=== PATIENT | male | born 1960 ===

== ENCOUNTER 2017-01-08 23:41 | Inpatient (IN) | payer MEDICAID ==
[2017-01-09] MEDS ORDERED: Piperacillin/Tazobact 3.375 GM in Sodium Chloride 0.9% 100 ML IV STA (00:17)
[2017-01-09] MEDS ORDERED: Piperacillin/Tazobact 3.375 gm Inj IVPB ONE (00:33)
[2017-01-09] MEDS ORDERED: Vancomycin 1 g Inj ONE (00:33)
[2017-01-09 00:48] LABS: BASO # 0.1 K/uL (0.0-0.2); BASO % 1.1 % (0.0-2.0); EOS # 0.3 K/uL (0.0-0.7); HEMATOCRIT 43.8 % (35.0-51.0); LYMPH # 2.6 K/uL (1.0-4.3); LYMPH % 23.4 % (20.0-40.0); MEAN CELL VOLUME 91.8 fl (80.0-94.0); MEAN CORPUSCULAR HEMOGLOBIN 30.4 pg (27.0-31.0); MEAN CORPUSCULAR HGB CONC 33.1 g/dL (33.0-37.0); MEAN PLATELET VOLUME 9.5 fl (7.2-11.7); MONO # 0.8 K/uL (0.0-0.8); MONO % 7.4 % (0.0-10.0); NEUT # 7.1 K/uL (1.8-7.0); NEUT % 65.1 % (50.0-75.0); NRBC % 0.2 % (0.0-0.0)
[2017-01-09 00:50] LABS: RBC URINE 1 /hpf (0-3); URINE BILIRUBIN NEGATIVE (NEGATIVE); URINE COLOR YELLOW (YELLOW); URINE GLUCOSE (UA) NEG (Normal); URINE KETONE NEGATIVE (NEGATIVE); URINE LEUKOCYTE ESTERASE NEG Leu/uL (Negative); URINE PROTEIN NEGATIVE (NEGATIVE); URINE UROBILINOGEN 0.2-1.0 mg/dL (0.2-1.0); WBC URINE < 1 /hpf (0-5)
[2017-01-09 00:52] LABS: URINE BLOOD NEGATIVE (NEGATIVE)
[2017-01-09 00:57] LABS: ALB/GLOB RATIO 1.5 (1.0-2.1); ALKALINE PHOSPHATASE 74 U/L (38-126); ALT/SGPT 47 U/L (21-72); AST/SGOT 36 U/L (17-59); BILIRUBIN,TOTAL 0.4 mg/dl (0.2-1.3); BLOOD UREA NITROGEN 31 mg/dl (9-20); CALCIUM 9.3 mg/dL (8.4-10.2); CARBON DIOXIDE 22 mmol/L (22-30); CHLORIDE 100 mmol/L (98-107); GFR AFRICAN-AMERICAN > 60; GLUCOSE,RANDOM 105 mg/dL (75-110); SODIUM 135 mmol/l (132-148); TOTAL PROTEIN 7.9 G/DL (6.3-8.2)
--- NOTE | 2017-01-09 00:57 | ED PDOC ---
Lower Extremity Pain/Injury Time Seen by Provider: 01/09/17 00:02 Chief Complaint (Nursing): Lower Extremity Problem/Injury Chief Complaint (Provider): Ulcer History Per: Patient History/Exam Limitations: no limitations Onset/Duration Of Symptoms: Days (180) Current Symptoms Are (Timing): Still Present Severity: Severe Additional History Per: Patient Additional Complaint(s): 56 y/o male with no PMHx here for evaluation of LLE ulceration x6 months. This is the 3rd ED visit for the same complaint in the last four days. Patient is taking Augmentin and applying Bacitracin and to the wound and complains of marked increase in pain, worsening of the wound, and new inability to bear weight. He denies any fever, chills, nausea, vomiting, diarrhea, chest pain, shortness of breath, or other complaint. - Risk Factors DVT Risk Factors: Pos: None Past Medical History Reviewed: Historical Data, Nursing Documentation, Vital Signs Vital Signs: Last Vital Signs Temp 98.5 F 01/08/17 23:54 Pulse 94 H 01/08/17 23:54 Resp 16 01/08/17 23:54 BP 115/78 01/08/17 23:54 Pulse Ox 100 01/08/17 23:54 - Medical History PMH: No Chronic Diseases - Surgical History Surgical History: No Surg Hx - Family History Family History: States: Unknown Family Hx - Social History Current smoker - smoking cessation education provided: No Ex-Smoker (has not smoked in the last 12 months): No Alcohol: None Drugs: Denies - Immunization History Hx Tetanus Toxoid Vaccination: No Hx Influenza Vaccination: No Hx Pneumococcal Vaccination: No - Home Medications Home Medications: Ambulatory Orders Medication Instructions Recorded Cephalexin [cephalexin] 500 mg PO Q6 #28 cap 06/02/16 - Allergies Allergies/Adverse Reactions: Allergies Allergy/AdvReac Type Severity Reaction Status Date / Time No Known Allergies Allergy Verified 06/02/16 12:01 Physical Exam - Reviewed Nursing Documentation Reviewed: Yes Vital Signs Reviewed: Yes - Physical Exam Appears: Positive for: Well, Non-toxic, No Acute Distress Head Exam: Positive for: ATRAUMATIC, NORMAL INSPECTION, NORMOCEPHALIC Skin: Positive for: Warm. Negative for: Normal Color (Left anterior tibial surface: 12 cm endophytic ulceration with brown/yellow discharge and some blood from the wound. Very tender to palpation. There is surrounding induration. ), Diaphoresis Eye Exam: Positive for: EOMI, Normal appearance, PERRL ENT: Positive for: Normal ENT Inspection Neck: Positive for: Normal, Painless ROM Cardiovascular/Chest: Positive for: Regular Rate, Rhythm Respiratory: Positive for: CNT, Normal Breath Sounds Gastrointestinal/Abdominal: Positive for: Normal Exam, Bowel Sounds, Soft Back: Positive for: Normal Inspection Extremity: Positive for: Tenderness, Swelling Neurologic/Psych: Positive for: Alert, Oriented - Laboratory Results Result Diagrams: 01/09/17 00:30 01/09/17 00:30 - ECG O2 Sat by Pulse Oximetry: 100 (RA) Pulse Ox Interpretation: Normal Medical Decision Making Medical Decision Making: Time: 12:59PM Impression: 56 y/o male with longstanding ulcer, worsening clinical status and appearance of the lesion, and multiple ED visits. Plan: - Labs - CXR - Vancomycin and Zosyn - Morphine - XR Left Tibia - US LLE [facility] Preliminary Radiology Report Call: [phone] assistance Online chat: [email or web address] Patient Name: PAULA ZAMORA (Age): 1960 56 Gender: M Date of Exam: 01/09/2017 Referring Physician: Michelet Olivarez # of Images: 35 Ordered As: US DUPLEX LOWER EXTRM VEIN LEFT CANDLE MOLDER MACHINE (QA) DISCREPANCY? If there is a discrepancy between the preliminary and final interpretation, please notify [employer] via [email or web address]. If you do not have access to our QA portal, call our QA team at [phone] CONFIDENTIALITY STATEMENT This report is intended only for the use of the referring physician, and only in accordance with law, If you received this in error, call [phone] Page 1 of 1 EXAM: US Duplex Left Lower Extremity Veins CLINICAL HISTORY: 56 years old, male; Pain; Leg, lower; Left; Additional info: Left leg pain TECHNIQUE: Real-time ultrasound scan of the veins of the left lower extremity with color Doppler flow, spectral waveform analysis and compression. COMPARISON: No relevant prior studies available. FINDINGS: Deep veins: Normal color and spectral Doppler flow. Normal compressibility. No deep vein thrombosis from common femoral to popliteal vein. Superficial veins: No thrombosis. Soft tissues: No popliteal cyst. Lymph nodes: 2.8 x 3.4 x 1.0 cm LEFT inguinal lymph node. IMPRESSION: 1. No evidence of DVT within LEFT lower extremity. 2. Incidental/non-acute findings are described above. Thank you for allowing us to participate in the care of your patient. Dictated and Authenticated by: Esau Laura MD 01/09/2017 1:19 AM Eastern Time ([place] & [place]) 01:20: Spoke with Dr. Benavidez who accepted patient for admission. Scribe Attestation: Documented by Zaida Mcneil acting as a scribe for Michelet Olivarez MD. Scribe Attestation: All medical record entries made by the Scribe were at my direction and personally dictated by me. I have reviewed the chart and agree that the record accurately reflects my personal performance of the history, physical exam, medical decision making, and the department course for this patient. I have also personally directed, reviewed, and agree with the discharge instructions and disposition. Disposition - Clinical Impression Clinical Impression: Cellulitis, Chronic ulcer of left lower extremity, Skin infection - Patient ED Disposition Is Patient to be Admitted: Yes Discussed With : Hector Benavidez Doctor Will See Patient In The: Hospital Counseled Patient/Family Regarding: Studies Performed, Diagnosis - Disposition Disposition Time: 01:20 Condition: STABLE - Pt Status Changed To: Hospital Disposition Of: Inpatient - Admit Certification Admit to Inpatient:: After my assessment, the patient will require hospitalization for at least two midnights. This is because of the severity of symptoms shown, intensity of services needed, and/or the medical risk in this patient being treated as an outpatient.
[2017-01-09 01:16] LABS: PARTIAL THROMBOPLASTIN TIME 27.8 SECONDS (23.3-32.5)
--- NOTE | 2017-01-09 01:37 | CP.PCM.HP ---
History of Present Illness - History of Present Illness History of Present Illness: CC: LLE ulcer HPI: This is a 56 y/o male with no known medical conditions who comes in with LLE ulceration which has not healed over the last 6 months in spite of antibiotics. Over past 4 days symptoms have gotten worse, and he has been to 2 other ERs and received an Rx for augmentin and bacitracin, without improvement. Denies f/c/n/v/d. ROS: 14 systems reviewed, negative other than HPI MHx: None known SHx: None Allergies: NKDA Medications: as per HPI Family Hx: Reviewed, no relevant findings Social Hx: Lives , no significant EtOH, ?tobacco Surrogate Decision Maker: Present on Admission - Present on Admission Any Indicators Present on Admission: No Past Patient History - Past Social History Alcohol: None Drugs: Denies - CARDIAC Hx Peripheral Vascular Disease: Yes (varicose veins) - PULMONARY Hx Respiratory Disorders: No - NEUROLOGICAL Hx Neurological Disorder: No - INTEGUMENTARY Hx Cellulitis: Yes - PSYCHIATRIC Hx Substance Use: No - SURGICAL HISTORY Hx Surgeries: No - ANESTHESIA Hx Anesthesia: No Meds Allergies/Adverse Reactions: Allergies Allergy/AdvReac Type Severity Reaction Status Date / Time No Known Allergies Allergy Verified 06/02/16 12:01 Physical Exam - Constitutional Appears: No Acute Distress - Head Exam Head Exam: ATRAUMATIC, NORMOCEPHALIC - Eye Exam Eye Exam: EOMI, PERRL - ENT Exam ENT Exam: Mucous Membranes Moist - Neck Exam Neck exam: Positive for: Full Rom - Respiratory Exam Respiratory Exam: Clear to Auscultation Bilateral, NORMAL BREATHING PATTERN - Cardiovascular Exam Cardiovascular Exam: REGULAR RHYTHM, +S1, +S2 - GI/Abdominal Exam GI & Abdominal Exam: Normal Bowel Sounds, Soft - Extremities Exam Extremities exam: Positive for: full ROM Additional comments: LLE ulcer with ?drainage - Neurological Exam Neurological exam: Alert, CN II-XII Intact, Oriented x3 - Psychiatric Exam Psychiatric exam: Normal Affect, Normal Mood - Skin Skin Exam: Dry, Warm Additional comments: ulcer on LLE as noted above Results - Vital Signs Recent Vital Signs: Last Vital Signs Temp 98.5 F 01/08/17 23:54 Pulse 94 H 01/08/17 23:54 Resp 16 01/08/17 23:54 BP 115/78 01/08/17 23:54 Pulse Ox 100 01/09/17 01:25 - Labs Result Diagrams: 01/09/17 00:30 01/09/17 00:30 Labs: Laboratory Results - last 24 hr 01/09/17 01/09/17 01/09/17 00:30 00:30 00:30 WBC 11.0 H RBC 4.78 Hgb 14.5 Hct 43.8 MCV 91.8 MCH 30.4 MCHC 33.1 RDW 13.0 Plt Count 223 MPV 9.5 Neut % (Auto) 65.1 Lymph % (Auto) 23.4 [place] % (Auto) 7.4 Eos % (Auto) 3.0 Baso % (Auto) 1.1 Neut # 7.1 H Lymph # 2.6 [place] # 0.8 Eos # 0.3 Baso # 0.1 PT INR APTT Sodium 135 Potassium 4.0 Chloride 100 Carbon Dioxide 22 Anion Gap 17 BUN 31 H Creatinine 1.3 Est GFR ( Amer) > 60 Est GFR (Non-Af Amer) 57 Random Glucose 105 Lactic Acid 0.9 Calcium 9.3 Total Bilirubin 0.4 AST 36 ALT 47 Alkaline Phosphatase 74 Total Protein 7.9 Albumin 4.7 Globulin 3.2 Albumin/Globulin Ratio 1.5 Urine Color Urine Clarity Urine pH Ur Specific Umbarger Urine Protein Urine Glucose (UA) Urine Ketones Urine Blood Urine Nitrate Urine Bilirubin Urine Urobilinogen Ur Leukocyte Esterase Urine RBC (Auto) Urine Microscopic WBC 01/09/17 01/09/17 00:30 00:30 WBC RBC Hgb Hct MCV MCH MCHC RDW Plt Count MPV Neut % (Auto) Lymph % (Auto) [place] % (Auto) Eos % (Auto) Baso % (Auto) Neut # Lymph # [place] # Eos # Baso # PT 10.8 INR 1.04 APTT 27.8 Sodium Potassium Chloride Carbon Dioxide Anion Gap BUN Creatinine Est GFR ( Amer) Est GFR (Non-Af Amer) Random Glucose Lactic Acid Calcium Total Bilirubin AST ALT Alkaline Phosphatase Total Protein Albumin Globulin Albumin/Globulin Ratio Urine Color Yellow Urine Clarity Clear Urine pH 6.0 Ur Specific Umbarger 1.020 Urine Protein Negative Urine Glucose (UA) Neg Urine Ketones Negative Urine Blood Negative Urine Nitrate Negative Urine Bilirubin Negative Urine Urobilinogen 0.2-1.0 Ur Leukocyte Esterase Neg Urine RBC (Auto) 1 Urine Microscopic WBC < 1 - Imaging and Cardiology Chest x-ray Status: Pending (XR of LE pending) Venous US Status: Pending Assessment & Plan (1) Chronic ulcer of left lower extremity Assessment and Plan: 56 y/o male with nonhealing ulcer of LLE of unclear etiology -- no dx of DM2, PVD or autoimmune arteritis for example. -admit for IV antibiotics -- Vanc and Zosyn IV for now -f/u ESR, cultures -Will need wound care and possibly podiatry consult -SCD only for DVT PPx Status: Acute (2) DVT prophylaxis Status: Acute
[2017-01-09] MEDS: Oxycodone/Acetaminophen 5/325 mg Tab PO PRN ×2 (03:09→18:13)
[2017-01-09 07:09] LABS: BASO % 0.4 % (0.0-2.0); EOS # 0.4 K/uL (0.0-0.7); EOS % 4.7 % (0.0-4.0); HEMATOCRIT 41.4 % (35.0-51.0); LYMPH # 2.5 K/uL (1.0-4.3); LYMPH % 32.4 % (20.0-40.0); MEAN CELL VOLUME 91.8 fl (80.0-94.0); MEAN CORPUSCULAR HEMOGLOBIN 30.2 pg (27.0-31.0); MEAN CORPUSCULAR HGB CONC 32.9 g/dL (33.0-37.0); MEAN PLATELET VOLUME 9.5 fl (7.2-11.7); MONO # 0.6 K/uL (0.0-0.8); MONO % 7.4 % (0.0-10.0); NEUT # 4.2 K/uL (1.8-7.0); NEUT % 55.1 % (50.0-75.0); NRBC % 0.2 % (0.0-0.0); RED CELL DISTRIBUTION WIDTH 13.4 % (11.5-14.5); WHITE BLOOD COUNT 7.7 K/uL (4.8-10.8)
[2017-01-09 07:36] LABS: BLOOD UREA NITROGEN 26 mg/dl (9-20); CARBON DIOXIDE 25 mmol/L (22-30); CHLORIDE 101 mmol/L (98-107); GFR AFRICAN-AMERICAN > 60; GLUCOSE,RANDOM 100 mg/dL (75-110); POTASSIUM 4.2 MMOL/L (3.6-5.0); SODIUM 138 mmol/l (132-148)
--- NOTE | 2017-01-09 08:37 | US ---
HISTORY: left leg pain . PRIORS: None. FINDINGS: 2-D, color and duplex Doppler analysis of the lower extremity venous circulation using routine protocol from the femoral veins through the popliteal veins. Venous compressibility: Normal. Flow and augmentation patterns: Normal. Visualized veins upper third of calf: Normal. Chau cyst: None. Other findings: Few enlarged left groin lymph nodes. IMPRESSION: No sonographic or Doppler evidence for DVT in left lower extremity. Please note that this report is in general agreement with the preliminary report provided by [facility].
[2017-01-09] MEDS: Piperacillin/Tazobact 3.375 GM in Sodium Chloride 0.9% 100 ML IVPB SCH ×3 (10:00→22:14)
--- NOTE | 2017-01-09 13:25 | RAD ---
PROCEDURE: Radiographs of the left tibia and fibula. HISTORY: r/o osteo COMPARISON: None available. TECHNIQUE: Frontal and lateral views obtained. FINDINGS: BONES: No apparent acute fracture dislocation JOINT SPACES: Unremarkable. OTHER FINDINGS: Multifocal punctate soft tissue calcifications along the medial aspect. IMPRESSION: No apparent fracture or dislocation.
--- NOTE | 2017-01-09 13:27 | RAD ---
HISTORY: admit COMPARISON: No prior. TECHNIQUE: Chest PA and lateral FINDINGS: LUNGS: No focal airspace opacity. PLEURA: No significant pleural effusion identified. No pneumothorax apparent. CARDIOVASCULAR: Normal. OSSEOUS STRUCTURES: The osseous structures demonstrate degenerative changes. VISUALIZED UPPER ABDOMEN: Normal. OTHER FINDINGS: None. IMPRESSION: No focal airspace opacity.
[2017-01-10] MEDS: Piperacillin/Tazobact 3.375 GM in Sodium Chloride 0.9% 100 ML IVPB SCH ×4 (02:55→20:42)
[2017-01-10] MEDS: Oxycodone/Acetaminophen 5/325 mg Tab PO PRN ×2 (02:56→09:28)
[2017-01-10] MEDS ORDERED: Pneumococcal 23-Valent Vaccine IM ONE (09:00)
--- NOTE | 2017-01-10 13:03 | CP.PCM.HP ---
History of Present Illness - History of Present Illness History of Present Illness: Hospitalist Progress Note (Patient was seen and examined at 12:55 PM 01/10/17 653 -1) States that the wound in his left lower anterior leg has been present for the past 3 to 4 months and it developed after he was scratching the area. He went to see his PMD Dr. Tang when it first appeared and he was given an unspecified antibiotic injection. He has been to 2 different ERs and was given PO antibiotics without improvement. There is NO history of trauma to the area. ROS: Pain is minor to the left leg area. States that he will feel the pain in this area after he stops walking and it will be stabbing pain that will last for about 5 minutes and then disappear. He has not moved his bowels since Monday Slightly dizzy right now NO other complaints upon FULL ROS Exam: HEENT: NCA, EOMI, PERRLA, NO pharyngeal erythema/exudate, NO cervical/ suprclavicular/submandibular lymphadenopathy, Mucous Membranes are moist, NO thyromegaly Cardio: NS1 and NS2, NO M/R/G Respiratory: CTA B/L, NO R/R/W GI: BSx4, Soft, NT, ND, NO HSM, NO guarding/rebound tenderness Ext: Unstageable Left Anterior Lower Leg irregularly shaped ulcer covered by eschar measuring roughly 4 cm by 2 cm. Surrounding this area there is redness of the skin that is nonblanchable but there is no warmth and no edema and it is nontender to palpation. Varicose veins superiorly and posteriorly to the area. Skin around the wound also shows changes of venous stasis. NO inguinal lymphadenopathy. Pulses are strong and equal in the bilateral UE and LE, Capillary Refill is seconds, NO cyanosis Neuro: CN II through XII are grossly intact Assessment and Plan: 1). LLE Cellulitis Left Leg Tib/Fib X Ray 01/09/17 showed no fracture/dislocation: I did not see any Periosteal Elevation Left Leg Venous Doppler 01/09/17 did not show any DVT ESR is 23 so I do not believe there is Osteomyelitis Zosyn 3.375 gm IV Q6H Vancomycin 1 gm IV Q12H Wound Culture 01/09/17 shows Coagulase Negative Staph Blood Culture 01/09/17 is negative to date Consult ID Dr. Dawn for further recommendations F/U Wound Care further recommendations Consult Podiatry Dr. Millicent Singer for recommendations on whether this patient would benefit from Anaya Boot 2). Prophylactic Measure Protonix 40 mg PO 1x/day SCD to Right Leg for DVT Risk Score of 1 Florastor 250 mg PO 2x/day Present on Admission - Present on Admission Any Indicators Present on Admission: Yes History of DVT/PE: No History of Uncontrolled Diabetes: No Urinary Catheter: No Past Patient History - Past Medical History & Family History Past Medical History?: Yes - Past Social History Alcohol: None Drugs: Denies - CARDIAC Hx Cardiac Disorders: Yes Hx Peripheral Vascular Disease: Yes (varicose veins) - PULMONARY Hx Respiratory Disorders: No - NEUROLOGICAL Hx Neurological Disorder: No - HEENT Hx HEENT Problems: Yes - RENAL Hx Chronic Kidney Disease: No - ENDOCRINE/METABOLIC Hx Endocrine Disorders: No Hx Diabetes Mellitus Type 2: No (denies) - HEMATOLOGICAL/ONCOLOGICAL Hx Blood Disorders: No Hx Human Immunodeficiency Virus (HIV): No - INTEGUMENTARY Hx Dermatological Problems: Yes Other/Comment: reports left leg ulcer x 6 mos - MUSCULOSKELETAL/RHEUMATOLOGICAL Hx Musculoskeletal Disorders: No Hx Falls: No - GASTROINTESTINAL Hx Gastrointestinal Disorders: No - GENITOURINARY/GYNECOLOGICAL Hx Genitourinary Disorders: No - PSYCHIATRIC Hx Psychophysiologic Disorder: No Hx Substance Use: No - SURGICAL HISTORY Hx Surgeries: Yes Other/Comment: reports having stitches done to left leg after wounding it years ago - ANESTHESIA Hx Anesthesia: No Hx Anesthesia Reactions: No Meds Allergies/Adverse Reactions: Allergies Allergy/AdvReac Type Severity Reaction Status Date / Time No Known Allergies Allergy Verified 06/02/16 12:01 Results - Vital Signs Recent Vital Signs: Last Vital Signs Temp 97.1 F L 01/10/17 08:30 Pulse 63 01/10/17 12:33 Resp 19 01/10/17 12:33 BP 113/74 01/10/17 12:33 Pulse Ox 97 01/10/17 12:33 - Labs Result Diagrams: 01/09/17 06:30 01/09/17 06:30
[2017-01-10] MEDS: Pantoprazole 40 mg EC Tab PO SCH (13:48)
--- NOTE | 2017-01-10 17:35 | CP.PCM.CON ---
History of Present Illness - History of Present Illness History of Present Illness: 56 year old male was seen resting comfortably at bedside regarding left leg ulcer. Patient states that he ulcer to his left leg has been presents for more than 4 months and states that it began after he scratched his leg. He admits to some pain and itching to his left leg. He states that he has been to many EDs for treatment. Past Patient History - Past Medical History & Family History Past Medical History?: Yes - Past Social History Alcohol: None Drugs: Denies - CARDIAC Hx Cardiac Disorders: Yes Hx Peripheral Vascular Disease: Yes (varicose veins) - PULMONARY Hx Respiratory Disorders: No - NEUROLOGICAL Hx Neurological Disorder: No - HEENT Hx HEENT Problems: Yes - RENAL Hx Chronic Kidney Disease: No - ENDOCRINE/METABOLIC Hx Endocrine Disorders: No Hx Diabetes Mellitus Type 2: No (denies) - HEMATOLOGICAL/ONCOLOGICAL Hx Blood Disorders: No Hx Human Immunodeficiency Virus (HIV): No - INTEGUMENTARY Hx Dermatological Problems: Yes Other/Comment: reports left leg ulcer x 6 mos - MUSCULOSKELETAL/RHEUMATOLOGICAL Hx Musculoskeletal Disorders: No Hx Falls: No - GASTROINTESTINAL Hx Gastrointestinal Disorders: No - GENITOURINARY/GYNECOLOGICAL Hx Genitourinary Disorders: No - PSYCHIATRIC Hx Psychophysiologic Disorder: No Hx Substance Use: No - SURGICAL HISTORY Hx Surgeries: Yes Other/Comment: reports having stitches done to left leg after wounding it years ago - ANESTHESIA Hx Anesthesia: No Hx Anesthesia Reactions: No Meds Allergies/Adverse Reactions: Allergies Allergy/AdvReac Type Severity Reaction Status Date / Time No Known Allergies Allergy Verified 06/02/16 12:01 - Medications Medications: Current Medications Acetaminophen (Tylenol 325mg Tab) 650 mg PO Q6 PRN PRN Reason: Pain, Mild (1-3) Acetaminophen (Tylenol 325mg Tab) 650 mg PO Q6 PRN PRN Reason: Fever >100.4 F Piperacillin Sod/Tazobactam (Sod 3.375 gm/ Sodium Chloride) 100 mls @ 100 mls/ hr IVPB 0200,0800,1400,2000 [facility] Last Admin: 01/10/17 15:43 Dose: 100 mls/hr Vancomycin HCl 1 gm/ Sodium (Chloride) 250 mls @ 166.667 mls/hr IVPB Q12@0200, 1400 [facility] Last Admin: 01/10/17 13:52 Dose: 166.667 mls/hr Oxycodone/Acetaminophen (Percocet 5/325 Mg Tab) 1 tab PO Q6 PRN PRN Reason: Pain, moderate (4-7) Stop: 01/12/17 01:40 Last Admin: 01/10/17 09:28 Dose: 1 tab Pantoprazole Sodium (Protonix Ec Tab) 40 mg PO DAILY [facility] Last Admin: 01/10/17 13:48 Dose: 40 mg Saccharomyces Boulardii (Florastor) 250 mg PO BID [facility] Physical Exam - Constitutional Appears: Non-toxic, No Acute Distress - Extremities Exam Additional comments: Lower extremity focused exam: Vasc: DP and PT pulses palpable b/l, CFT < 3 seconds to all digits b/l, Skin temperature warm to warm from proximal to distal b/l. Ortho: Tenderness on palpation to wound site on left anterior carlisle Neuro: Gross sensation intact b/l Derm: Ulceration noted to anterior aspect of left left with an eschar measuring approximately 5 cm by 2.5 cm, periwound is erythematous and non-blanchable. No drainage, no malodor, no purulence noted. Varicosities noted to left lower extremity - Neurological Exam Neurological exam: Alert, Oriented x3 - Psychiatric Exam Psychiatric exam: Normal Affect, Normal Mood Results - Vital Signs Recent Vital Signs: Last Vital Signs Temp 98.6 F 01/10/17 15:58 Pulse 61 01/10/17 15:58 Resp 20 01/10/17 15:58 BP 102/65 01/10/17 15:58 Pulse Ox 96 01/10/17 15:58 - Labs Result Diagrams: 01/09/17 06:30 01/09/17 06:30 Assessment & Plan - Assessment and Plan (Free Text) Assessment: 56 year old male with ulceration noted to left anterior carlisle Plan: patient examined and evaluated discussed in detail with attending, Dr. Singer chart, labs, vitals reviewed;WBC 7.7 wound cx: coagulase neg staph continue iv abx per primary left lower extremity cleansed with normal sterile saline left anterior carlisle ulcer dressed with santyl, periwound dressed with triamcinolone 0.1%, dressed with DSD compression stocking applied to LLE podiatry will continue to follow patient while in house
[2017-01-10] MEDS: Saccharomyces Boulardi 250 mg Cap PO SCH (17:38)
[2017-01-11] MEDS: Piperacillin/Tazobact 3.375 GM in Sodium Chloride 0.9% 100 ML IVPB SCH ×4 (01:19→20:47)
--- NOTE | 2017-01-11 06:21 | CP.PCM.PN ---
Subjective - Date & Time of Evaluation Date of Evaluation: 01/11/17 Time of Evaluation: 06:21 - Subjective Subjective: 56 year old male was seen resting comfortably at bedside regarding left leg ulcer. Patient states that he feels better today and has less pain to his left leg. He admits to less itching. He deneis n/v/f/c/sob/cp. Objective - Vital Signs/Intake and Output Vital Signs (last 24 hours): Temp Pulse Resp BP Pulse Ox 98.4 F 66 20 120/66 99 01/11/17 00:54 01/11/17 00:54 01/11/17 00:54 01/11/17 00:54 01/11/17 00:54 Intake and Output: 01/10/17 01/11/17 18:59 06:59 Intake Total 350 Output Total 1400 Balance -1050 - Medications Medications: Current Medications Acetaminophen (Tylenol 325mg Tab) 650 mg PO Q6 PRN PRN Reason: Pain, Mild (1-3) Acetaminophen (Tylenol 325mg Tab) 650 mg PO Q6 PRN PRN Reason: Fever >100.4 F Collagenase (Santyl) 1 applic TOP DAILY [facility] Piperacillin Sod/Tazobactam (Sod 3.375 gm/ Sodium Chloride) 100 mls @ 100 mls/ hr IVPB 0200,0800,1400,2000 [facility] Last Admin: 01/11/17 01:19 Dose: 100 mls/hr Vancomycin HCl 1 gm/ Sodium (Chloride) 250 mls @ 166.667 mls/hr IVPB Q12@0200, 1400 [facility] Last Admin: 01/11/17 01:19 Dose: 166.667 mls/hr Oxycodone/Acetaminophen (Percocet 5/325 Mg Tab) 1 tab PO Q6 PRN PRN Reason: Pain, moderate (4-7) Stop: 01/12/17 01:40 Last Admin: 01/10/17 09:28 Dose: 1 tab Pantoprazole Sodium (Protonix Ec Tab) 40 mg PO DAILY [facility] Last Admin: 01/10/17 13:48 Dose: 40 mg Saccharomyces Boulardii (Florastor) 250 mg PO BID [facility] Last Admin: 01/10/17 17:38 Dose: 250 mg Triamcinolone Acetonide (Kenalog 0.1% Oint) 0 appl TOP BID [facility] Last Admin: 01/10/17 18:54 Dose: 1 applic - Labs Labs: 01/09/17 06:30 01/09/17 06:30 PT 10.8 SECONDS (9.6-11.2) 01/09/17 00:30 INR 1.04 (0.92-1.08) 01/09/17 00:30 APTT 27.8 SECONDS (23.3-32.5) 01/09/17 00:30 - Constitutional Appears: Well, Non-toxic, No Acute Distress - Extremities Exam Additional comments: Lower extremity focused exam: Vasc: DP and PT pulses palpable b/l, CFT < 3 seconds to all digits b/l, Skin temperature warm to warm from proximal to distal b/l. Ortho: Tenderness on palpation to wound site on left anterior carlisle Neuro: Gross sensation intact b/l Derm: Ulceration noted to anterior aspect of left left with an eschar measuring approximately 3 cm by 1.5 cm, periwound is erythematous and non-blanchable. Mild amount of sanguineous drainage, mild malodor, no purulence noted. Varicosities noted to left lower extremity - Neurological Exam Neurological Exam: Alert, Awake, Oriented x3 - Psychiatric Exam Psychiatric exam: Normal Affect, Normal Mood Assessment and Plan - Assessment and Plan (Free Text) Assessment: 56 year old male with ulceration noted to left anterior carlisle Plan: patient examined and evaluated discussed in detail with attending, Dr. Singer chart, labs, vitals reviewed;afebrile wound cx: coagulase neg staph continue iv abx per primary left lower extremity cleansed with normal sterile saline left anterior carlisle ulcer dressed with santyl, periwound dressed with triamcinolone 0.1%, dressed with DSD compression stocking applied to LLE podiatry will continue to follow patient while in house
[2017-01-11 07:24] LABS: BASO % 0.3 % (0.0-2.0); EOS # 0.3 K/uL (0.0-0.7); EOS % 3.7 % (0.0-4.0); HEMATOCRIT 40.4 % (35.0-51.0); LYMPH # 2.1 K/uL (1.0-4.3); LYMPH % 29.4 % (20.0-40.0); MEAN CELL VOLUME 91.1 fl (80.0-94.0); MEAN CORPUSCULAR HEMOGLOBIN 30.5 pg (27.0-31.0); MEAN CORPUSCULAR HGB CONC 33.4 g/dL (33.0-37.0); MEAN PLATELET VOLUME 9.2 fl (7.2-11.7); MONO # 0.4 K/uL (0.0-0.8); MONO % 5.5 % (0.0-10.0); NEUT # 4.4 K/uL (1.8-7.0); NEUT % 61.1 % (50.0-75.0); NRBC % 0.1 % (0.0-0.0); RED CELL DISTRIBUTION WIDTH 13.4 % (11.5-14.5); WHITE BLOOD COUNT 7.3 K/uL (4.8-10.8)
[2017-01-11 07:40] LABS: BLOOD UREA NITROGEN 16 mg/dl (9-20); CARBON DIOXIDE 25 mmol/L (22-30); CHLORIDE 102 mmol/L (98-107); GFR AFRICAN-AMERICAN > 60; GLUCOSE,RANDOM 99 mg/dL (75-110); POTASSIUM 3.8 MMOL/L (3.6-5.0); SODIUM 139 mmol/l (132-148)
[2017-01-11] MEDS: Saccharomyces Boulardi 250 mg Cap PO SCH ×2 (08:26→16:43)
[2017-01-11] MEDS: Santyl Collagenase OINTMENT TOP SCH (08:27)
[2017-01-11] MEDS: Pantoprazole 40 mg EC Tab PO SCH (08:30)
[2017-01-11] MEDS ORDERED: Povidone Iodine Topical 10% Sol TOP ONE (09:21)
[2017-01-11] MEDS ORDERED: Povidone Iodine Topical 10% Sol ONE (09:57)
--- NOTE | 2017-01-11 13:50 | CP.PCM.CON ---
History of Present Illness - History of Present Illness History of Present Illness: 56 YO MALE WITH UNSTAGEABLE LLE ULCER/ CELLULITIS ONGOING FOR SEVERAL MONTHS STARTED ON VANCO/ZOSYN EMPIRICALLY DENIES FEVER CHILLS CHESTY PAIN COUGH OR SOB Review of Systems - Constitutional Constitutional: As Per HPI - EENT Eyes: absent: As Per HPI, Blind Spots, Blurred Vision, Change in Vision, Decreased Night Vision, Diplopia, Discharge, Dry Eye, Exophthalmos, Floaters, Irritation, Itchy Eyes, Loss of Peripheral Vision, Pain, Photophobia, Requires Corrective Lenses, Sees Flashes, Spots in Vision, Tunnel Vision, Other Visual Disturbances, Loss of Vision, Other Ears: absent: As Per HPI, Decreased Hearing, Ear Discharge, Ear Pain, Tinnitus, Abnormal Hearing, Disequilibrium, Dizziness, Other Nose/Mouth/Throat: absent: As Per HPI, Epistaxis, Nasal Congestion, Nasal Discharge, Nasal Obstruction, Nasal Trauma, Nose Pain, Post Nasal Drip, Sinus Pain, Sinus Pressure, Bleeding Gums, Change in Voice, Dental Pain, Dry Mouth, Dysphagia, Halitosis, Hoarsness, Lip Swelling, Mouth Lesions, Mouth Pain, Odynophagia, Sore Throat, Throat Swelling, Tongue Swelling, Facial Pain, Neck Pain, Neck Mass, Other - Cardiovascular Cardiovascular: absent: As Per HPI, Acrocyanosis, Chest Pain, Chest Pain at Rest , Chest Pain with Activity, Claudication, Diaphoresis, Dyspnea, Dyspnea on Exertion, Edema, Irregular Heart Rhythm, Pain Radiating to Arm/Neck/Jaw, Leg Edema, Leg Ulcers, Lightheadedness, Orthopnea, Palpitations, Paroxysmal Nocturnal Dyspnea, Pedal Edema, Radiating Pain, Rapid Heart Rate, Slow Heart Rate, Syncope, Other - Respiratory Respiratory: absent: As Per HPI, Cough, Dyspnea, Hemoptysis, Dyspnea on Exertion , Wheezing, Snoring, Stridor, Pain on Inspiration, Chest Congestion, Excessive Mucous Production, Change in Mucous Color, Pain with Coughing, Other - Gastrointestinal Gastrointestinal: absent: As Per HPI, Abdominal Pain, Belching, Bloating, Change in Bowel Habits, Change in Stool Character, Coffee Ground Emesis, Constipation, Cramping, Diarrhea, Dyspepsia, Dysphagia, Early Satiety, Excessive Flatus, Fecal Incontinence, Heartburn, Hematemesis, Hematochezia, Loose Stools, Melena, Nausea, Odynophagia, Temesmus, Vomiting, Other - Genitourinary Genitourinary: absent: As Per HPI, Change in Urinary Stream, Difficulty Urinating, Dysuria, Flank Pain, Hematuria, Pyuria, Nocturia, Urinary Incontinence, Urinary Frequency, Urinary Hesitance, Urinary Urgency, Voiding Freq/Small Amts, Freq UTI, Hx Renal/Bladder Calculi, Hx /Renal Surgery, Bladder Distension, Other - Musculoskeletal Musculoskeletal: absent: As Per HPI, Abnormal Gait, Arthralgias, Atrophy, Back Pain, Deformity, Joint Swelling, Limited Range of Motion, Loss of Height, Muscle Cramps, Muscle Weakness, Myalgias, Neck Pain, Numbness, Radiating Pain into Limb, Stiffness, Tingling, Other - Integumentary Integumentary: As Per HPI - Neurological Neurological: absent: As Per HPI, Abnormal Gait, Abnormal Hearing, Abnormal Movements, Abnormal Speech, Behavioral Changes, Burning Sensations, Confusion, Convulsions, Disequilibrium, Dizziness, Numbness, Focal Weakness, Frequent Falls , Headaches, Lack of Coordination, Loss of Vision, Memory Loss, Paresthesias, Radicular Pain, Restless Legs, Sensory Deficit, Syncope, Tingling, Tremor, Vertigo, Weakness, Other Visual Disturbances, Other - Psychiatric Psychiatric: absent: As Per HPI, Abnormal Sleep Pattern, Anhedonia, Anxiety, Auditory Hallucinations, Behavioral Changes, Change in Appetite, Change in Libido, Confusion, Depression, Difficulty Concentrating, Hallucinations, Homicidal Ideation, Hopelessness, Irritability, Memory Loss, Mood Swings, Panic Attacks, Paranoia, Suicidal Ideation, Visual Hallucinations, Tactile Hallucinations, Other - Endocrine Endocrine: absent: As Per HPI, Change in Body Appearance, Change in Libido, Cold Intolorance, Deepening of Voice, Excessive Sweating, Fatigue, Flushing, Heat Intolorance, Increase in Ring/Shoe/Hat Size, Palpitations, Polydipsia, Polyphagia, Polyuria, Other - Hematologic/Lymphatic Hematologic: absent: As Per HPI, Easy Bleeding, Easy Bruising, Lymphadenopathy, Other Past Patient History - Past Medical History & Family History Past Medical History?: Yes - Past Social History Alcohol: None Drugs: Denies - CARDIAC Hx Cardiac Disorders: Yes Hx Peripheral Vascular Disease: Yes (varicose veins) - PULMONARY Hx Respiratory Disorders: No - NEUROLOGICAL Hx Neurological Disorder: No - HEENT Hx HEENT Problems: Yes - RENAL Hx Chronic Kidney Disease: No - ENDOCRINE/METABOLIC Hx Endocrine Disorders: No Hx Diabetes Mellitus Type 2: No (denies) - HEMATOLOGICAL/ONCOLOGICAL Hx Blood Disorders: No Hx Human Immunodeficiency Virus (HIV): No - INTEGUMENTARY Hx Dermatological Problems: Yes Other/Comment: reports left leg ulcer x 6 mos - MUSCULOSKELETAL/RHEUMATOLOGICAL Hx Musculoskeletal Disorders: No Hx Falls: No - GASTROINTESTINAL Hx Gastrointestinal Disorders: No - GENITOURINARY/GYNECOLOGICAL Hx Genitourinary Disorders: No - PSYCHIATRIC Hx Psychophysiologic Disorder: No Hx Substance Use: No - SURGICAL HISTORY Hx Surgeries: Yes Other/Comment: reports having stitches done to left leg after wounding it years ago - ANESTHESIA Hx Anesthesia: No Hx Anesthesia Reactions: No Meds Allergies/Adverse Reactions: Allergies Allergy/AdvReac Type Severity Reaction Status Date / Time No Known Allergies Allergy Verified 06/02/16 12:01 - Medications Medications: Current Medications Acetaminophen (Tylenol 325mg Tab) 650 mg PO Q6 PRN PRN Reason: Pain, Mild (1-3) Acetaminophen (Tylenol 325mg Tab) 650 mg PO Q6 PRN PRN Reason: Fever >100.4 F Collagenase (Santyl) 1 applic TOP DAILY [facility] Last Admin: 01/11/17 08:27 Dose: 1 applic Piperacillin Sod/Tazobactam (Sod 3.375 gm/ Sodium Chloride) 100 mls @ 100 mls/ hr IVPB 0200,0800,1400,2000 [facility] Last Admin: 01/11/17 08:25 Dose: 100 mls/hr Vancomycin HCl 1 gm/ Sodium (Chloride) 250 mls @ 166.667 mls/hr IVPB Q12@0200, 1400 [facility] Last Admin: 01/11/17 01:19 Dose: 166.667 mls/hr Oxycodone/Acetaminophen (Percocet 5/325 Mg Tab) 1 tab PO Q6 PRN PRN Reason: Pain, moderate (4-7) Stop: 01/12/17 01:40 Last Admin: 01/10/17 09:28 Dose: 1 tab Pantoprazole Sodium (Protonix Ec Tab) 40 mg PO DAILY [facility] Last Admin: 01/11/17 08:30 Dose: 40 mg Saccharomyces Boulardii (Florastor) 250 mg PO BID [facility] Last Admin: 01/11/17 08:26 Dose: 250 mg Triamcinolone Acetonide (Kenalog 0.1% Oint) 0 appl TOP BID [facility] Last Admin: 01/11/17 08:26 Dose: 1 applic Physical Exam - Constitutional Appears: Non-toxic - Head Exam Head Exam: NORMOCEPHALIC - Eye Exam Eye Exam: PERRL. absent: Scleral icterus - ENT Exam ENT Exam: Mucous Membranes Dry, Normal External Ear Exam - Neck Exam Neck exam: Negative for: Lymphadenopathy - Respiratory Exam Respiratory Exam: Decreased Breath Sounds, Clear to Auscultation Bilateral - Cardiovascular Exam Cardiovascular Exam: REGULAR RHYTHM, +S1, +S2 - GI/Abdominal Exam GI & Abdominal Exam: Diminished Bowel Sounds, Soft. absent: Tenderness - Rectal Exam Rectal Exam: Deferred - Exam Exam: NORMAL INSPECTION - Extremities Exam Extremities exam: Positive for: calf tenderness, pedal pulses present. Negative for: pedal edema, tenderness - Expanded Lower Extremities Exam Left Hip exam: absent: abrasion, crepitus, deformity, dislocation, ecchymosis, erythema, external rotation, full ROM, internal rotation, laceration, pelvic stability, shortening, swelling, tenderness, normal inspection Upper Leg exam: absent: abrasion, crepitus, deformity, dislocation, ecchymosis, erythema, full ROM, laceration, swelling, tenderness, normal inspection Knee exam: absent: abrasion, anterior draw sign, crepitus, deformity, dislocation, ecchymosis, effusion, erythema, full knee extension, full ROM, laceration, pain/laxity with valgus, pain/laxity with varus, posterior draw sign , swelling, tenderness, normal inspection Lower Leg Exam: erythema, swelling, tenderness Ankle exam: absent: abrasion, NORMAL INSPECTION, swelling, tenderness, anterior draw sign, crepitus, deformity, dislocation, ecchymosis, erythema, FULL ROM, laceration Foot/Toe exam: absent: abrasion, full ROM, laceration, nail avulsion, normal inspection, onychomycosis, puncture wound, subungual hematoma, swelling, tenderness, tenderness at base of 5th metatarsal, amputation, calcaneal tenderness, crepitus, deformity, dislocation, ecchymosis, erythema, foreign body Neuro vacular tendon exam: absent: abnormal 2-point discrimination, pulse deficit, sensory deficit, significant pain with passive ROM of distal joint, tendon deficit, abnormal cap refill, decreased fine/light touch, extremity cold to touch, foot drop, motor deficit, no vascular compromise, pallor, peroneal nerve deficit Gait: absent: antalgic, not tested/not observed, observed and limited by pain, observed and normal, unable to bear weight - Back Exam Back exam: absent: CVA tenderness (L), CVA tenderness (R) - Neurological Exam Neurological exam: Alert, CN II-XII Intact, Oriented x3, Reflexes Normal - Psychiatric Exam Psychiatric exam: Normal Mood - Skin Skin Exam: Dry Additional comments: Unstageable Left Anterior Lower Leg irregularly shaped ulcer covered by eschar measuring roughly 4 cm by 2 cm. Surrounding this area there is redness of the skin that is nonblanchable but there is no warmth and no edema and it is nontender to palpation. Varicose veins superiorly and posteriorly to the area. Skin around the wound also shows changes of venous stasis. NO inguinal lymphadenopathy. Pulses are strong and equal in the bilateral UE and LE, Capillary Refill is seconds, NO cyanosis Results - Vital Signs Recent Vital Signs: Last Vital Signs Temp 98.2 F 01/11/17 08:22 Pulse 77 01/11/17 10:59 Resp 20 01/11/17 08:22 BP 100/63 01/11/17 08:22 Pulse Ox 94 L 01/11/17 10:59 - Labs Result Diagrams: 01/11/17 06:10 01/11/17 06:10 Labs: Laboratory Results - last 24 hr 01/11/17 01/11/17 06:10 06:10 WBC 7.3 RBC 4.43 Hgb 13.5 Hct 40.4 MCV 91.1 MCH 30.5 MCHC 33.4 RDW 13.4 Plt Count 193 MPV 9.2 Neut % (Auto) 61.1 Lymph % (Auto) 29.4 [place] % (Auto) 5.5 Eos % (Auto) 3.7 Baso % (Auto) 0.3 Neut # 4.4 Lymph # 2.1 [place] # 0.4 Eos # 0.3 Baso # 0.0 Sodium 139 Potassium 3.8 Chloride 102 Carbon Dioxide 25 Anion Gap 15 BUN 16 Creatinine 1.1 Est GFR ( Amer) > 60 Est GFR (Non-Af Amer) > 60 Random Glucose 99 Calcium 9.0 Assessment & Plan (1) Cellulitis Status: Acute (2) Chronic ulcer of left lower extremity Status: Acute (3) DVT prophylaxis Status: Acute (4) Skin infection Status: Acute - Assessment and Plan (Free Text) Assessment: CONT RX CHECK VANCO LEVELS
--- NOTE | 2017-01-11 16:08 | CP.PCM.PN ---
Subjective - Date & Time of Evaluation Date of Evaluation: 01/11/17 Time of Evaluation: 15:45 - Subjective Subjective: Hospitalist Progress Note (Patient was seen and examined at 3:45 PM 01/11/17 653- 1) States that the wound in his left lower anterior leg has been present for the past 3 to 4 months and it developed after he was scratching the area. He went to see his PMD Dr. Tang when it first appeared and he was given an unspecified antibiotic injection. He has been to 2 different ERs and was given PO antibiotics without improvement. There is NO history of trauma to the area. Patient was admitted to this institution on 01/09/17 for further evaluation and treatment. ROS: Pain is minor to the left leg area. States that he will feel the pain in this area after he stops walking and it will be stabbing pain that will last for about 5 minutes and then disappear. He moved his bowels this morning (nonbloody and nonblack) Dizziness has resolved NO other complaints upon FULL ROS Exam: HEENT: NCA, EOMI, PERRLA, NO pharyngeal erythema/exudate, NO cervical/ suprclavicular/submandibular lymphadenopathy, Mucous Membranes are moist, NO thyromegaly Cardio: NS1 and NS2, NO M/R/G Respiratory: CTA B/L, NO R/R/W GI: BSx4, Soft, NT, ND, NO HSM, NO guarding/rebound tenderness Ext: The left anterior lower leg could not be examined secondary to Anaya Boot. However on 01/10/17: Unstageable Left Anterior Lower Leg irregularly shaped ulcer covered by eschar measuring roughly 4 cm by 2 cm. Surrounding this area there is redness of the skin that is nonblanchable but there is no warmth and no edema and it is nontender to palpation. Varicose veins superiorly and posteriorly to the area. Skin around the wound also shows changes of venous stasis. NO inguinal lymphadenopathy. Pulses are strong and equal in the bilateral UE and LE, Capillary Refill is seconds, NO cyanosis Neuro: CN II through XII are grossly intact Assessment and Plan: 1). LLE Cellulitis/Chronic Ulcer/Chronic Venous Stasis Left Leg Tib/Fib X Ray 01/09/17 showed no fracture/dislocation: I did not see any Periosteal Elevation Left Leg Venous Doppler 01/09/17 did not show any DVT ESR is 23 so I do not believe there is Osteomyelitis Zosyn 3.375 gm IV Q6H Vancomycin 1 gm IV Q12H F/U Vancomycin Trough Level 1:30 AM 01/12/17 Wound Culture 01/09/17 shows Coagulase Negative Staph: F/U sensitivities Blood Culture 01/09/17 is negative to date ID Dr. Dawn: await sensitivities of wound culture to adjust antibiotic Consult Podiatry Dr. Millicent Singer: UNNA BOOT placed 01/11/17, wound care as per Podiatry (Collagenase 1 donato top 1x/day, Povidone Iodine 10 % 20 ml top 1x/day, Triamcinolone 0.1% top 1x/day) 2). Prophylactic Measure Protonix 40 mg PO 1x/day SCD to Right Leg for DVT Risk Score of 1 Florastor 250 mg PO 2x/day Percocet 5/325 mg PO Q6H PRN Moderate Pain Objective - Vital Signs/Intake and Output Vital Signs (last 24 hours): Temp Pulse Resp BP Pulse Ox 98.2 F 77 20 100/63 94 L 01/11/17 08:22 01/11/17 10:59 01/11/17 08:22 01/11/17 08:22 01/11/17 10:59 - Medications Medications: Current Medications Acetaminophen (Tylenol 325mg Tab) 650 mg PO Q6 PRN PRN Reason: Pain, Mild (1-3) Acetaminophen (Tylenol 325mg Tab) 650 mg PO Q6 PRN PRN Reason: Fever >100.4 F Collagenase (Santyl) 1 applic TOP DAILY [facility] Last Admin: 01/11/17 08:27 Dose: 1 applic Piperacillin Sod/Tazobactam (Sod 3.375 gm/ Sodium Chloride) 100 mls @ 100 mls/ hr IVPB 0200,0800,1400,2000 [facility] Last Admin: 01/11/17 15:38 Dose: 100 mls/hr Vancomycin HCl 1 gm/ Sodium (Chloride) 250 mls @ 166.667 mls/hr IVPB Q12@0200, 1400 [facility] Last Admin: 01/11/17 01:19 Dose: 166.667 mls/hr Oxycodone/Acetaminophen (Percocet 5/325 Mg Tab) 1 tab PO Q6 PRN PRN Reason: Pain, moderate (4-7) Stop: 01/12/17 01:40 Last Admin: 01/10/17 09:28 Dose: 1 tab Pantoprazole Sodium (Protonix Ec Tab) 40 mg PO DAILY [facility] Last Admin: 01/11/17 08:30 Dose: 40 mg Saccharomyces Boulardii (Florastor) 250 mg PO BID [facility] Last Admin: 01/11/17 08:26 Dose: 250 mg Triamcinolone Acetonide (Kenalog 0.1% Oint) 0 appl TOP BID [facility] Last Admin: 01/11/17 08:26 Dose: 1 applic - Labs Labs: 01/11/17 06:10 01/11/17 06:10 PT 10.8 SECONDS (9.6-11.2) 01/09/17 00:30 INR 1.04 (0.92-1.08) 01/09/17 00:30 APTT 27.8 SECONDS (23.3-32.5) 01/09/17 00:30
[2017-01-12 00:53] VITALS: PULSE 64; RESP 20
[2017-01-12] MEDS: Piperacillin/Tazobact 3.375 GM in Sodium Chloride 0.9% 100 ML IVPB SCH ×2 (02:22→09:00)
[2017-01-12 07:37] VITALS: BP 107/70; TEMP 97.7; O2SAT 98
[2017-01-12] MEDS: Saccharomyces Boulardi 250 mg Cap PO SCH (09:53)
[2017-01-12] MEDS: Pantoprazole 40 mg EC Tab PO SCH (09:53)
[2017-01-12] MEDS: Santyl Collagenase OINTMENT TOP SCH (09:56)
--- NOTE | 2017-01-12 12:13 | CP.PCM.DIS ---
Provider - Provider Date of Admission: 01/09/17 01:27 Attending physician: Hector Benavidez MD Time Spent in preparation of Discharge (in minutes): 30 Hospital Course - Lab Results Lab Results: Micro Results 01/09/17 02:00 Leg - Left Gram Stain - Final 01/09/17 02:00 Leg - Left Wound Culture - Final Coagulase Neg Staphylococcus Most Recent Lab Values WBC 7.3 K/uL (4.8-10.8) 01/11/17 06:10 RBC 4.43 Mil/uL (4.40-5.90) 01/11/17 06:10 Hgb 13.5 g/dL (12.0-18.0) 01/11/17 06:10 Hct 40.4 % (35.0-51.0) 01/11/17 06:10 MCV 91.1 fl (80.0-94.0) 01/11/17 06:10 MCH 30.5 pg (27.0-31.0) 01/11/17 06:10 MCHC 33.4 g/dL (33.0-37.0) 01/11/17 06:10 RDW 13.4 % (11.5-14.5) 01/11/17 06:10 Plt Count 193 K/uL (130-400) 01/11/17 06:10 MPV 9.2 fl (7.2-11.7) 01/11/17 06:10 Neut % (Auto) 61.1 % (50.0-75.0) 01/11/17 06:10 Lymph % (Auto) 29.4 % (20.0-40.0) 01/11/17 06:10 [place] % (Auto) 5.5 % (0.0-10.0) 01/11/17 06:10 Eos % (Auto) 3.7 % (0.0-4.0) 01/11/17 06:10 Baso % (Auto) 0.3 % (0.0-2.0) 01/11/17 06:10 Neut # 4.4 K/uL (1.8-7.0) 01/11/17 06:10 Lymph # 2.1 K/uL (1.0-4.3) 01/11/17 06:10 [place] # 0.4 K/uL (0.0-0.8) 01/11/17 06:10 Eos # 0.3 K/uL (0.0-0.7) 01/11/17 06:10 Baso # 0.0 K/uL (0.0-0.2) 01/11/17 06:10 ESR 23 mm/hr (0-20) H 01/09/17 00:30 PT 10.8 SECONDS (9.6-11.2) 01/09/17 00:30 INR 1.04 (0.92-1.08) 01/09/17 00:30 APTT 27.8 SECONDS (23.3-32.5) 01/09/17 00:30 Sodium 139 mmol/l (132-148) 01/11/17 06:10 Potassium 3.8 MMOL/L (3.6-5.0) 01/11/17 06:10 Chloride 102 mmol/L (98-107) 01/11/17 06:10 Carbon Dioxide 25 mmol/L (22-30) 01/11/17 06:10 Anion Gap 15 (10-20) 01/11/17 06:10 BUN 16 mg/dl (9-20) 01/11/17 06:10 Creatinine 1.1 mg/dL (0.8-1.5) 01/11/17 06:10 Est GFR ( Amer) > 60 01/11/17 06:10 Est GFR (Non-Af Amer) > 60 01/11/17 06:10 POC Glucose (mg/dL) 215 mg/dL (65-110) H 01/09/17 10:16 Random Glucose 99 mg/dL (75-110) 01/11/17 06:10 Hemoglobin A1c 6.0 % (4.2-6.5) 01/09/17 06:30 Lactic Acid 0.9 MMOL/L (0.7-2.1) 01/09/17 00:30 Calcium 9.0 mg/dL (8.4-10.2) 01/11/17 06:10 Total Bilirubin 0.4 mg/dl (0.2-1.3) 01/09/17 00:30 AST 36 U/L (17-59) 01/09/17 00:30 ALT 47 U/L (21-72) 01/09/17 00:30 Alkaline Phosphatase 74 U/L (38-126) 01/09/17 00:30 Total Protein 7.9 G/DL (6.3-8.2) 01/09/17 00:30 Albumin 4.7 g/dL (3.5-5.0) 01/09/17 00:30 Globulin 3.2 gm/dL (2.2-3.9) 01/09/17 00: Albumin/Globulin Ratio 1.5 (1.0-2.1) 01/09/17 00: Urine Color Yellow (YELLOW) 01/09/17 00: Urine Clarity Clear (Clear) 01/09/17: Urine pH 6.0 (5.0-8.0) 01/09/17 00: Ur Specific [place] 1.020 (1.003-1.030) 01/09/17 00: Urine Protein Negative mg/dL (NEGATIVE) 01/09/17 00 Urine Glucose (UA) Neg mg/dL (Normal) 01/09/17 Urine Ketones Negative mg/dL (NEGATIVE) 01/09/17 00: Urine Blood Negative (NEGATIVE) 01/09/17 00: Urine Nitrate Negative (NEGATIVE) 01/09/17: Urine Bilirubin Negative (NEGATIVE) 01/09/17 Urine Urobilinogen 0.2-1.0 mg/dL (0.2-1.0) 01/09/17 00:30 Ur Leukocyte Esterase Neg Sally/uL (Negative) 01/09/17 00 Urine RBC (Auto) 1 /hpf (0-3) 01/09/17 00: Urine Microscopic WBC < 1 /hpf (0-5) 01/09/17 00:30 Vancomycin Trough 12.2 ug/mL (5.0-10.0) H 01/12/17 01:30 - Hospital Course Hospital Course: 56 Male with wound in his left lower anterior leg has been present for the past 3 to 4 months and it developed after he was scratching the area. He went to see his PMD Dr. Tang when it first appeared and he was given an unspecified antibiotic injection. He has been to 2 different ERs and was given PO antibiotics without improvement. There is NO history of trauma to the area. Patient was admitted to this institution on 01/09/17 for further evaluation and treatment. Patient received IV abx, seen be ID and Podiatry. Discussed with ID ok to DC home with Clinda and Topical Bactroban. Will follow up in clinic with ID and Podiatry. Patient stable to be dc home. Assessment and Plan: 1). LLE Cellulitis/Chronic Ulcer/Chronic Venous Stasis Left Leg Tib/Fib X Ray 01/09/17 showed no fracture/dislocation: I did not see any Periosteal Elevation Left Leg Venous Doppler 01/09/17 did not show any DVT ESR is 23 so I do not believe there is Osteomyelitis Zosyn 3.375 gm IV Q6H Vancomycin 1 gm IV Q12H Wound Culture 01/09/17 shows Coagulase Negative Staph: F/U sensitivities Blood Culture 01/09/17 is negative to date ID Dr. Dawn: await sensitivities of wound culture to adjust antibiotic Consult Podiatry Dr. Millicent Singer: UNNA BOOT placed 01/11/17, wound care as per Podiatry (Collagenase 1 donato top 1x/day, Povidone Iodine 10 % 20 ml top 1x/day, Triamcinolone 0.1% top 1x/day) 2). Prophylactic Measure Protonix 40 mg PO 1x/day SCD to Right Leg for DVT Risk Score of 1 Florastor 250 mg PO 2x/day Percocet 5/325 mg PO Q6H PRN Moderate Pain Discharge Exam - Head Exam Head Exam: NORMOCEPHALIC Additional comments: Exam: HEENT: NCA, EOMI, PERRLA, NO pharyngeal erythema/exudate Cardio: NS1 and NS2, NO M/R/G Respiratory: CTA B/L, NO R/R/W GI: BSx4, Soft, NT, ND, NO HSM, NO guarding/rebound tenderness Ext: The left anterior lower leg could not be examined secondary to Anaya Boot. Skin around the wound also shows changes of venous stasis. NO inguinal lymphadenopathy. Pulses are strong and equal in the bilateral UE and LE, Capillary Refill is seconds, NO cyanosis Neuro: CN II through XII are grossly intact Discharge Plan - Follow Up Plan Condition: STABLE Disposition: HOME/ ROUTINE Additional Instructions: FOLLOW UP PCP, DR. DAWN INFECTIOUS DISEASE AND DR. SINGER PODIATRY IN ONE WEEK (DRESSING CHANGES) MEDICATIONS: CLINDAMYCIN 300 MG PO Q8H HOURS FOR 10 DAYS, AND BACTROBAN CREAM FOR CELLULITIS RESUME ACTIVITY TOLERATED RESUME DIET RETURN TO ER IF CONDITION WORSENS Referrals: Cosme Dawn MD [Staff Provider] - Erum Singer DPM [Staff Provider] -
== END 2017-01-12 15:43 | disposition home or self-care (01) | DRG 603 ==
LOC: H.ER 23:41 → H.ERHOLD 01-09 01:27 → H.MEDSURG1 01-09 02:41
PROVIDERS: ADMIT Internal Medicine; ATTEND Internal Medicine
PROC: 3E0234Z Introduction of Serum, Toxoid and Vaccine into Muscle, Percutaneous Approach (ICD-10-PCS; principal; 2017-01-12)
DX: L03.116 Cellulitis of left lower limb (principal); L97.929 Non-pressure chronic ulcer of unspecified part of left lower leg with unspecified severity; B95.7 Other staphylococcus as the cause of diseases classified elsewhere; I87.8 Other specified disorders of veins; Z23 Encounter for immunization; I73.9 Peripheral vascular disease, unspecified

== ENCOUNTER 2017-01-13 19:52 | Emergency (ER) | payer SELFPAY ==
[2017-01-13 21:01] VITALS: BP 109/70; PULSE 76; RESP 17; TEMP 98.8; O2SAT 96
--- NOTE | 2017-01-13 21:10 | ED PDOC ---
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 Patient states he was never given rx upon discharge. He was supposed to get prescription for clindamycin and Bactroban cream. Patient denies fever or chills. He has bandage in place to right lower extremity that he is supposed to be changing daily with prescription for Bactroban. Past Medical History Reviewed: Historical Data, Nursing Documentation, Vital Signs Vital Signs: Last Vital Signs Temp 98.8 F 01/13/17 20:48 Pulse 76 01/13/17 20:48 Resp 17 01/13/17 20:48 BP 109/70 01/13/17 20:48 Pulse Ox 96 01/13/17 21:22 - Medical History PMH: Diabetes - Family History Family History: States: No Known Family Hx - Living Arrangements Living Arrangements: With Family - Social History Current smoker - smoking cessation education provided: No Alcohol: None Drugs: Denies - Home Medications Home Medications: Ambulatory Orders Medication Instructions Recorded Clindamycin [Cleocin] 300 mg PO Q8 #30 cap 01/12/17 Mupirocin 2% Cream [Bactroban 30 applic EXT TID #1 tube 01/12/17 Cream] Clindamycin [Cleocin] 300 mg PO TID #30 cap 01/13/17 Mupirocin 2% Cream [Bactroban 1 gm TOP BID #1 tube 01/13/17 Cream] - Allergies Allergies/Adverse Reactions: Allergies Allergy/AdvReac Type Severity Reaction Status Date / Time No Known Allergies Allergy Verified 06/02/16 12:01 Review of Systems ROS Statement: Except As Marked, All Systems Reviewed And Found Negative Constitutional: Negative for: Fever, Chills Skin: Positive for: Other (left leg cellulitis, needs rx for antibiotics) Physical Exam - Reviewed Nursing Documentation Reviewed: Yes Vital Signs Reviewed: Yes - Physical Exam Appears: Positive for: Well, Non-toxic, No Acute Distress Skin: Negative for: Rash Eye Exam: Positive for: Normal appearance, EOMI, PERRL Cardiovascular/Chest: Positive for: Regular Rate, Rhythm Respiratory: Positive for: Normal Breath Sounds Back: Negative for: L CVA Tenderness, R CVA Tenderness Extremity: Positive for: Other (chronic cellulitis left leg with superficial ulcerated wound noted to left anterior carlisle with mild pururlent drainage, normal distal sensation, normal cap refill) Neurologic/Psych: Positive for: Alert, Oriented - ECG O2 Sat by Pulse Oximetry: 96 Pulse Ox Interpretation: Normal Medical Decision Making Medical Decision Makin56 year old with left leg cellulitis and open wound. Previous records reviewed. Patient was supposed to receive prescriptions for clindamycin and Bactroban cream. Wound was cleansed with normal saline, dressed with Bactroban, nonstick gauze and secured with Joseph wrap. Patient given prescriptions for clindamycin and Bactroban cream. Patient was referred to clinic for follow-up. Disposition - Clinical Impression Clinical Impression: Cellulitis, Chronic ulcer of left lower extremity, Skin infection - Patient ED Disposition Is Patient to be Admitted: No Counseled Patient/Family Regarding: Diagnosis, Need For Followup, Rx Given - Disposition Referrals: [facility] [Outside] Disposition: Routine/Home Disposition Time: 22:37 Condition: STABLE Additional Instructions: Change bandage daily and re-apply cream. Take oral antibiotics as directed. Follow up next week with clinic or return any time if acutely worse. Prescriptions: Clindamycin [Cleocin] 300 mg PO TID #30 cap Mupirocin 2% Cream [Bactroban Cream] 1 gm TOP BID #1 tube Instructions: Cellulitis (ED), Acute Wound Care (ED) Print Language: GUAMANIAN
[2017-01-13] MEDS ORDERED: Mupirocin 2% Cream TOP STA (21:21)
[2017-01-13] MEDS ORDERED: Bacitracin 500 Units/gm Oint Foilpak UD ONE (21:40)
== END 2017-01-13 22:48 | disposition home or self-care (01) ==
LOC: H.ER 19:52
DX: L03.116 Cellulitis of left lower limb (principal); L08.9 Local infection of the skin and subcutaneous tissue, unspecified; E11.9 Type 2 diabetes mellitus without complications

== ENCOUNTER 2017-02-01 11:54 | Emergency (ER) | payer OTHER ==
--- NOTE | 2017-02-01 13:41 | ED PDOC ---
Lower Extremity Pain/Injury Time Seen by Provider: 02/01/17 12:18 Chief Complaint (Nursing): Lower Extremity Problem/Injury Chief Complaint (Provider): Lower Extermity Problem/Injury History Per: Patient History/Exam Limitations: no limitations Onset/Duration Of Symptoms: Days Current Symptoms Are (Timing): Still Present Additional Complaint(s): 56 y/o male patient presenting to the ED with lower left leg pain. PT states 2 days ago he developed the symptoms which includes discharge, bruising and discoloration and it hurts to touch. He states he suffers from Stasis and denies asthma or any other prior medical conditions. Past Medical History Reviewed: Historical Data, Nursing Documentation, Vital Signs Vital Signs: Last Vital Signs Temp 98.9 F 02/01/17 12:04 Pulse 81 02/01/17 12:04 Resp 18 02/01/17 12:04 BP 98/70 L 02/01/17 12:04 Pulse Ox 100 02/01/17 12:04 - Medical History PMH: Diabetes, Chronic Kidney Disease Denies: HIV - Family History Family History: States: Unknown Family Hx - Immunization History Hx Tetanus Toxoid Vaccination: No Hx Influenza Vaccination: No Hx Pneumococcal Vaccination: No - Home Medications Home Medications: Ambulatory Orders Medication Instructions Recorded Clindamycin [Cleocin] 300 mg PO Q8 #30 cap 01/12/17 Mupirocin 2% Cream [Bactroban 30 applic EXT TID #1 tube 01/12/17 Cream] Clindamycin [Cleocin] 300 mg PO TID #30 cap 01/13/17 Mupirocin 2% Cream [Bactroban 1 gm TOP BID #1 tube 01/13/17 Cream] Clindamycin [Cleocin] 300 mg PO BID #14 cap 02/01/17 Mupirocin 2% Cream [Bactroban 30 applic TOP BID #1 tube 02/01/17 Cream] - Allergies Allergies/Adverse Reactions: Allergies Allergy/AdvReac Type Severity Reaction Status Date / Time No Known Allergies Allergy Verified 06/02/16 12:01 Review of Systems ROS Statement: Except As Marked, All Systems Reviewed And Found Negative Constitutional: Negative for: Fever, Chills Cardiovascular: Negative for: Chest Pain Respiratory: Negative for: Shortness of Breath Gastrointestinal: Negative for: Nausea, Vomiting, Diarrhea Musculoskeletal: Positive for: Leg Pain (Left leg pain ) Skin: Positive for: Other (Discharge) Physical Exam - Reviewed Nursing Documentation Reviewed: Yes Vital Signs Reviewed: Yes - Physical Exam Appears: Positive for: Non-toxic, No Acute Distress Respiratory: Positive for: Normal Breath Sounds. Negative for: Respiratory Distress Extremity: Positive for: Other (Discharge, ecchymosis, ulceration ) Neurologic/Psych: Positive for: Alert, Oriented. Negative for: Motor/Sensory Deficits - Laboratory Results Result Diagrams: 02/01/17 14:13 02/01/17 14:13 - ECG O2 Sat by Pulse Oximetry: 100 (RA) Pulse Ox Interpretation: Normal Medical Decision Making Medical Decision Making: Time: 1218 Initial impression: Lower Left Extremity Ulceration Initial plan: --CMP --Wound Care Center Consult --CBC --Partial Thromboplastin Time --Prothrombin Time --Blood Culture --Wound Culture and Gram Stain --Call Wound Care Center --Tibia Fibula Left --Duplex Lower Extremity US: Negative XR: NAD, as read by KIMBER Labs resulted and reviewed with pt who demonstrated full understanding Podiatry presented to see and evaluate Pt at bedside. See notes. Scribe Attestation: Documented by Kaitlyn Lemus acting as a scribe for BRIAN Silva MD Scribe Attestation: All medical record entries made by the Scribe were at my direction and personally dictated by me. I have reviewed the chart and agree that the record accurately reflects my personal performance of the history, physical exam, medical decision making, and the department course for this patient. I have also personally directed, reviewed, and agree with the discharge instructions and disposition. Disposition - Clinical Impression Clinical Impression: Chronic ulcer of left lower extremity - Patient ED Disposition Is Patient to be Admitted: No - Disposition Disposition: Routine/Home Disposition Time: 16:14 Condition: STABLE Prescriptions: Clindamycin [Cleocin] 300 mg PO BID #14 cap Mupirocin 2% Cream [Bactroban Cream] 30 applic TOP BID #1 tube Instructions: Cellulitis (ED) Print Language: DANISH - POA Present On Arrival: None
--- NOTE | 2017-02-01 13:42 | RAD ---
PROCEDURE: Radiographs of the left tibia and fibula. HISTORY: ulceration along the anterior distal lower leg COMPARISON: None available. TECHNIQUE: Frontal and lateral views obtained. FINDINGS: BONES: No fracture or destructive lesion. No periosteal reaction vascular calcifications and phleboliths noted JOINT SPACES: Unremarkable. OTHER FINDINGS: No subcutaneous gas seen. There is very subtle irregularity to the most anterior superficial mid to distal soft tissues which probably relate to patient's history of the ulcer here. This is very superficial and the deep ulcerations appreciated per these radiographs. IMPRESSION: No periosteal reaction or cortical destruction seen to suggest an osteomyelitis. Soft tissue findings are as above and probably relate to the clinically known ulcer here
[2017-02-01] MEDS ORDERED: Piperacillin/Tazobact 3.375 GM in Sodium Chloride 0.9% 100 ML IV STA (14:13)
[2017-02-01 14:30] LABS: BASO % 0.5 % (0.0-2.0); EOS # 0.3 K/uL (0.0-0.7); EOS % 3.6 % (0.0-4.0); HEMATOCRIT 41.2 % (35.0-51.0); LYMPH # 2.2 K/uL (1.0-4.3); LYMPH % 30.7 % (20.0-40.0); MEAN CELL VOLUME 91.9 fl (80.0-94.0); MEAN CORPUSCULAR HEMOGLOBIN 30.1 pg (27.0-31.0); MEAN CORPUSCULAR HGB CONC 32.8 g/dL (33.0-37.0); MEAN PLATELET VOLUME 9.4 fl (7.2-11.7); MONO # 0.5 K/uL (0.0-0.8); MONO % 7.2 % (0.0-10.0); NEUT # 4.2 K/uL (1.8-7.0); RED CELL DISTRIBUTION WIDTH 13.7 % (11.5-14.5); WHITE BLOOD COUNT 7.2 K/uL (4.8-10.8)
--- NOTE | 2017-02-01 14:35 | US ---
Left lower extremity ultrasound. Indication: Rule out blood clot Technique: Duplex ultrasound evaluation of the left lower extremity Comparison: Left lower extremity ultrasound performed 01/09/17 Findings: There is normal flow, compressibility, and augmentation of the left common femoral, femoral, and popliteal veins. The left posterior tibial vein appears patent. Prominent inguinal lymph node measuring approximately 0.8 cm in short axis, nonspecific. Impression: No evidence of deep venous thrombosis in the left lower extremity.
[2017-02-01 14:37] LABS: ALB/GLOB RATIO 1.4 (1.0-2.1); ALKALINE PHOSPHATASE 71 U/L (38-126); ALT/SGPT 37 U/L (21-72); AST/SGOT 20 U/L (17-59); BILIRUBIN,TOTAL 0.5 mg/dl (0.2-1.3); BLOOD UREA NITROGEN 18 mg/dl (9-20); CALCIUM 9.4 mg/dL (8.4-10.2); CARBON DIOXIDE 25 mmol/L (22-30); CHLORIDE 104 mmol/L (98-107); GFR AFRICAN-AMERICAN > 60; GLUCOSE,RANDOM 86 mg/dL (75-110); POTASSIUM 4.2 MMOL/L (3.6-5.0); SODIUM 140 mmol/l (132-148); TOTAL PROTEIN 7.6 G/DL (6.3-8.2)
[2017-02-01 14:52] LABS: PARTIAL THROMBOPLASTIN TIME 32.8 Seconds (25.6-37.1)
--- NOTE | 2017-02-01 15:16 | CP.PCM.CON ---
History of Present Illness - History of Present Illness History of Present Illness: 56 y/o male patient presents to ED with chief complaint of left lower leg pain. Per patient he says that he has had pain to the leg for the past several days. Says he sustained wound to the leg several months ago. Per review of notes, pt was recently hospitalized for same problem and discharged 01/13/17 on clindamycin. Pt says he took the antibiotic but has failed to follow up in the podiatry or wound care clinic. Pt says he changes the dressing with gauze at home. Denies f/n/v/c/sob/cp at this time. Past Patient History - Past Medical History & Family History Past Medical History?: Yes - Past Social History Smoking Status: Never Smoked - CARDIAC Hx Cardiac Disorders: Yes Hx Peripheral Vascular Disease: Yes (varicose veins) - PULMONARY Hx Respiratory Disorders: No - NEUROLOGICAL Hx Neurological Disorder: No - HEENT Hx HEENT Problems: No - RENAL Hx Chronic Kidney Disease: Yes - ENDOCRINE/METABOLIC Hx Endocrine Disorders: No Hx Diabetes Mellitus Type 2: No (denies) - HEMATOLOGICAL/ONCOLOGICAL Hx Human Immunodeficiency Virus (HIV): No - INTEGUMENTARY Hx Dermatological Problems: Yes Other/Comment: reports left leg ulcer x 6 mos - MUSCULOSKELETAL/RHEUMATOLOGICAL Hx Musculoskeletal Disorders: No Hx Falls: No - GASTROINTESTINAL Hx Gastrointestinal Disorders: No - GENITOURINARY/GYNECOLOGICAL Hx Genitourinary Disorders: No - PSYCHIATRIC Hx Psychophysiologic Disorder: No Hx Substance Use: No - SURGICAL HISTORY Hx Surgeries: Yes Other/Comment: reports having stitches done to left leg after wounding it years ago - ANESTHESIA Hx Anesthesia: No Hx Anesthesia Reactions: No Meds Home Medications: Home Medication List Medication Instructions Recorded Confirmed Type Clindamycin [Cleocin] 300 mg PO BID #14 cap 02/01/17 Rx Mupirocin 2% Cream [Bactroban 30 applic TOP BID #1 tube 02/01/17 Rx Cream] Allergies/Adverse Reactions: Allergies Allergy/AdvReac Type Severity Reaction Status Date / Time No Known Allergies Allergy Verified 06/02/16 12:01 - Medications Medications: Current Medications Vancomycin HCl 1 gm/ Sodium (Chloride) 250 mls @ 166.667 mls/hr IV STAT STA Stop: 02/01/17 15:42 Last Admin: 02/01/17 14:42 Dose: 166.667 mls/hr Physical Exam - Constitutional Appears: Well, Non-toxic, No Acute Distress - Extremities Exam Extremities exam: Negative for: calf tenderness Additional comments: LLE exam VASC- DP/PT pulses palpable 1/4, TG runs warm to cool, cap refill < 3 sec to all digits, 2+ pitting edema noted to distal carlisle NEURO- pedal sensation grossly intact DERM- superficial ulceration noted anterior-distal aspect of leg measures 1.0x0.5x0.3cm with 100% granular wound base, no drainage, no probe to bone, no tracking, no fluctance, no erthema, discoloration of periwound area is noted ORTHO- tenderness to touch of wound, - Neurological Exam Neurological exam: Alert, CN II-XII Intact, Normal Gait - Psychiatric Exam Psychiatric exam: Normal Affect, Normal Mood Results - Vital Signs Recent Vital Signs: Last Vital Signs Temp 98.9 F 02/01/17 12:04 Pulse 81 02/01/17 12:04 Resp 18 02/01/17 12:04 BP 98/70 L 02/01/17 12:04 Pulse Ox 100 02/01/17 13:50 - Labs Result Diagrams: 02/01/17 14:13 02/01/17 14:13 Labs: Laboratory Results - last 24 hr 02/01/17 02/01/17 02/01/17 14:13 14:13 14:13 WBC 7.2 RBC 4.48 Hgb 13.5 Hct 41.2 MCV 91.9 MCH 30.1 MCHC 32.8 L RDW 13.7 Plt Count 205 MPV 9.4 Neut % (Auto) 58.0 Lymph % (Auto) 30.7 [place] % (Auto) 7.2 Eos % (Auto) 3.6 Baso % (Auto) 0.5 Neut # 4.2 Lymph # 2.2 [place] # 0.5 Eos # 0.3 Baso # 0.0 PT 13.0 INR 1.2 APTT 32.8 Sodium 140 Potassium 4.2 Chloride 104 Carbon Dioxide 25 Anion Gap 15 BUN 18 Creatinine 1.0 Est GFR ( Amer) > 60 Est GFR (Non-Af Amer) > 60 Random Glucose 86 Calcium 9.4 Total Bilirubin 0.5 AST 20 ALT 37 Alkaline Phosphatase 71 Total Protein 7.6 Albumin 4.5 Globulin 3.1 Albumin/Globulin Ratio 1.4 Assessment & Plan - Assessment and Plan (Free Text) Assessment: 56 yo male patient with ulceration to left lower extremity secondary to venous stasis disease Plan: Pt S&E in ED Plan discussed with attending Dr. Singer in detail Chart and vitals reviewed LLE duplex US reviewed: (-) for DVT Wound cx taken Wound bed cleansed with sterile normal saline, bacitracin, telfa, cling and VALDO compressive bandage Advised pt to clean wound daily, apply bacitracin, gauze and wear VALDO. may take off at night Addressed all q's and concerns with patient, recommend elevating legs IV abx dose given in ED Strongly encouraged patient to follow up in clinic Stable for d/c
[2017-02-01 18:30] VITALS: BP 103/63; PULSE 64; RESP 16; TEMP 98.2; O2SAT 98
== END 2017-02-01 18:29 | disposition home or self-care (01) ==
LOC: H.ER 11:54
DX: L97.323 Non-pressure chronic ulcer of left ankle with necrosis of muscle (principal); E11.22 Type 2 diabetes mellitus with diabetic chronic kidney disease; I73.9 Peripheral vascular disease, unspecified; N18.9 Chronic kidney disease, unspecified

== ENCOUNTER 2017-02-13 12:29 | Emergency (ER) | payer OTHER ==
--- NOTE | 2017-02-13 13:01 | ED PDOC ---
Lower Extremity Pain/Injury Time Seen by Provider: 02/13/17 12:40 Chief Complaint (Nursing): Lower Extremity Problem/Injury Chief Complaint (Provider): Lower Extremity Problem/Injury History Per: Patient History/Exam Limitations: no limitations Onset/Duration Of Symptoms: Days (1x) Current Symptoms Are (Timing): Still Present Severity: Moderate Additional Complaint(s): 56 year old male with a pertinent medical history of diabetes and varicose veins presents to the ED with complaints of left lower extremity pain that started last night. He reports that he was seen in he ED 1x month ago for a wound check in the same area, and he was discharged home with antibiotics. He reports that he finished his course of antibiotics, but started developing pain in the area last night. He denies having fevers or chills. PMD: Patient does not have a PMD. Past Medical History Reviewed: Historical Data, Nursing Documentation, Vital Signs - Medical History PMH: Diabetes, Chronic Kidney Disease Denies: HIV - Family History Family History: States: Unknown Family Hx - Social History Current smoker - smoking cessation education provided: No Alcohol: None Drugs: Denies - Immunization History Hx Tetanus Toxoid Vaccination: No Hx Influenza Vaccination: No Hx Pneumococcal Vaccination: No - Home Medications Home Medications: Ambulatory Orders Medication Instructions Recorded Clindamycin [Cleocin] 300 mg PO Q8 #30 cap 01/12/17 Mupirocin 2% Cream [Bactroban 30 applic EXT TID #1 tube 01/12/17 Cream] Clindamycin [Cleocin] 300 mg PO TID #30 cap 01/13/17 Mupirocin 2% Cream [Bactroban 1 gm TOP BID #1 tube 01/13/17 Cream] Clindamycin [Cleocin] 300 mg PO BID #14 cap 02/01/17 Mupirocin 2% Cream [Bactroban 30 applic TOP BID #1 tube 02/01/17 Cream] - Allergies Allergies/Adverse Reactions: Allergies Allergy/AdvReac Type Severity Reaction Status Date / Time No Known Allergies Allergy Verified 06/02/16 12:01 Review of Systems Constitutional: Negative for: Fever, Chills Musculoskeletal: Positive for: Leg Pain (left leg) Physical Exam - Reviewed Nursing Documentation Reviewed: Yes Vital Signs Reviewed: Yes - Physical Exam Appears: Positive for: Well, Non-toxic, No Acute Distress Head Exam: Positive for: ATRAUMATIC, NORMOCEPHALIC Skin: Positive for: Normal Color, Warm, Dry Cardiovascular/Chest: Positive for: Regular Rate, Rhythm Respiratory: Positive for: Normal Breath Sounds. Negative for: Respiratory Distress Extremity: Positive for: Normal ROM, Tenderness (left anterior tibial region), Swelling (large amount of hyperpigmentation of anterior tibial region. 3cm wound , mild drainage noted. (+) tenderness) Neurologic/Psych: Positive for: Alert, Oriented (3x) - Laboratory Results Result Diagrams: 02/13/17 13:03 02/13/17 13:03 - Progress ED Course And Treament: Reviewed previous ED visit for wound check. Reviewed ultrasound and XRay, both negative. Patient was prescribed clindamycin and bactroban cream. wound culture: coag negative staf. XRY TIB-FIB: NO OBVIOUS BONY CHANGES. VAncomycin 1 gm iv x 1 dose Seen by podiatry residents. Wound debrided at this time. Will f/u on Monday in Podiatry clinic for further management of wound. Medical Decision Making Medical Decision Makin:40 Initial impression: 56 year old male with left leg pain. Initial plan: * CMP * lactic acid * CBC * vancomyocin inj 1gm sodium chloridfe .9% 250ml IVPB * blood culture * XRay tibia fibula left * reevaluation Scribe Attestation: Documented by Liliya Preciado, acting as a scribe for Jim Aviles PA-C. Provider Scribe Attestation: All medical record entries made by the Scribe were at my direction and personally dictated by me. I have reviewed the chart and agree that the record accurately reflects my personal performance of the history, physical exam, medical decision making, and the department course for this patient. I have also personally directed, reviewed, and agree with the discharge instructions and disposition. Disposition - Clinical Impression Clinical Impression: Leg wound, left - Patient ED Disposition Is Patient to be Admitted: No - Disposition Referrals: Podiatry Clinic [Outside] Disposition: Routine/Home Disposition Time: 14:16 Condition: FAIR Additional Instructions: MADDY ANGEL WES PARA VIERNES. CHRISTIAN UN MENSAJE Y ELLOS PUEDEN LLAMAR PARA AYUDARLE. Instructions: Chronic Wound Care (ED) Forms: [facility] (Italian), [facility] ED School/Work Excuse Print Language: ARMENIAN
[2017-02-13] MEDS ORDERED: Vancomycin 1 g Inj ONE (13:08)
[2017-02-13 13:23] LABS: BASO % 0.4 % (0.0-2.0); EOS # 0.2 K/uL (0.0-0.7); EOS % 3.5 % (0.0-4.0); HEMOGLOBIN 13.4 g/dL (12.0-18.0); LYMPH # 1.6 K/uL (1.0-4.3); MEAN CELL VOLUME 91.2 fl (80.0-94.0); MEAN CORPUSCULAR HEMOGLOBIN 30.2 pg (27.0-31.0); MEAN CORPUSCULAR HGB CONC 33.1 g/dL (33.0-37.0); MEAN PLATELET VOLUME 9.6 fl (7.2-11.7); MONO # 0.4 K/uL (0.0-0.8); MONO % 6.4 % (0.0-10.0); NEUT # 3.4 K/uL (1.8-7.0); NEUT % 60.7 % (50.0-75.0); NRBC % 0.1 % (0.0-0.0); RBC 4.45 Mil/uL (4.40-5.90); RED CELL DISTRIBUTION WIDTH 13.6 % (11.5-14.5); WHITE BLOOD COUNT 5.6 K/uL (4.8-10.8)
[2017-02-13 13:35] LABS: ALB/GLOB RATIO 1.5 (1.0-2.1); ALBUMIN 4.3 g/dL (3.5-5.0); ALT/SGPT 34 U/L (21-72); AST/SGOT 20 U/L (17-59); BLOOD UREA NITROGEN 18 mg/dl (9-20); CALCIUM 9.1 mg/dL (8.4-10.2); GFR AFRICAN-AMERICAN > 60; GFR NON-AFRICAN AMERICAN > 60
--- NOTE | 2017-02-13 14:31 | CP.PCM.CON ---
History of Present Illness - History of Present Illness History of Present Illness: 56 y/o male with PMHx of DM and CKD seen at bedside in ED for pain secondary to a superficial ulcer on left distal-lateral aspect of the mid leg. Pt rates his pain as 7/10 on VAS. Pt states that he has had this ulcer for awhile. Pt states that his ulcer has not gotten better and its staying the same. Pt states he tried following up in the clinic but they told him he did not have an appointment, so he is unsure as to how to make one. Pt states that he was given Clindamycin and Bactrim. Pt states that he finished his antibiotic course as advised. Pt also denies of any recent trauma to the leg. Pt denies of any recent F/N/V/C/SOB. PMHx: DM, CKD PSHx: none Allergies: N.K.D.A Review of Systems - Constitutional Constitutional: As Per HPI Past Patient History - Past Medical History & Family History Past Medical History?: Yes - Past Social History Alcohol: None Drugs: Denies - CARDIAC Hx Cardiac Disorders: Yes Hx Peripheral Vascular Disease: Yes (varicose veins) - PULMONARY Hx Respiratory Disorders: No - NEUROLOGICAL Hx Neurological Disorder: No - HEENT Hx HEENT Problems: No - RENAL Hx Chronic Kidney Disease: Yes - ENDOCRINE/METABOLIC Hx Endocrine Disorders: No Hx Diabetes Mellitus Type 2: No (denies) - HEMATOLOGICAL/ONCOLOGICAL Hx Human Immunodeficiency Virus (HIV): No - INTEGUMENTARY Hx Dermatological Problems: Yes Other/Comment: reports left leg ulcer x 6 mos - MUSCULOSKELETAL/RHEUMATOLOGICAL Hx Musculoskeletal Disorders: No Hx Falls: No - GASTROINTESTINAL Hx Gastrointestinal Disorders: No - GENITOURINARY/GYNECOLOGICAL Hx Genitourinary Disorders: No - PSYCHIATRIC Hx Psychophysiologic Disorder: No Hx Substance Use: No - SURGICAL HISTORY Hx Surgeries: Yes Other/Comment: reports having stitches done to left leg after wounding it years ago - ANESTHESIA Hx Anesthesia: No Hx Anesthesia Reactions: No Meds Allergies/Adverse Reactions: Allergies Allergy/AdvReac Type Severity Reaction Status Date / Time No Known Allergies Allergy Verified 06/02/16 12:01 Physical Exam - Constitutional Appears: Well, Non-toxic, No Acute Distress - Extremities Exam Additional comments: VASC: DP/PT pulses are palpable 2/4 b/l, FUR CLIPPER: < 3 sec x 10, TG: warm to cool, no pitting or non-pitting edema noted to extremity b/l DERM: Superficial ulcer measuring approx 1 cm x 0.5 cm x 0.1 cm with surrounding hyperpigmentation, no erythema, ulcer bed appears 70% granular 30% fibrotic, no probe to bone, no undermining, no active drainage, no purulent drainage, no clinical suspicion of infection NEURO: Protective sensation grossly intact ORTHO: pain on palpation of the distal lateral aspect of the left leg surrounding the ulcerated site - Neurological Exam Neurological exam: Alert, Oriented x3 - Psychiatric Exam Psychiatric exam: Normal Affect, Normal Mood Results - Labs Result Diagrams: 02/13/17 13:03 02/13/17 13:03 Labs: Laboratory Results - last 24 hr 02/13/17 02/13/17 02/13/17 13: 13: 13:03 WBC 5.6 RBC 4.45 Hgb 13.4 Hct 40.6 MCV 91.2 MCH 30.2 MCHC 33.1 RDW 13.6 Plt Count 204 MPV 9.6 Neut % (Auto) 60.7 Lymph % (Auto) 29.0 [place] % (Auto) 6.4 Eos % (Auto) 3.5 Baso % (Auto) 0.4 Neut # 3.4 Lymph # 1.6 [place] # 0.4 Eos # 0.2 Baso # 0.0 Sodium 140 Potassium 3.7 Chloride 107 Carbon Dioxide 23 Anion Gap 13 BUN 18 Creatinine 1.0 Est GFR ( Amer) > 60 Est GFR (Non-Af Amer) > 60 Random Glucose 114 H Lactic Acid 1.5 Calcium 9.1 Total Bilirubin 0.6 AST 20 ALT 34 Alkaline Phosphatase 66 Total Protein 7.1 Albumin 4.3 Globulin 2.8 Albumin/Globulin Ratio 1.5 Assessment & Plan - Assessment and Plan (Free Text) Assessment: 56 y/o male seen at bedside in ED for ulceration to left lower extremity secondary to venous stasis disease Plan: Pt evaluated and chart reviewed Pt discussed in details with attending Dr. 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
--- NOTE | 2017-02-13 14:56 | RAD ---
PROCEDURE: Left tibia/ fibula 02/13/2017 HISTORY: Leg wound. COMPARISON: None available. TECHNIQUE: Frontal and lateral views obtained. FINDINGS: BONES: Current study reveals no evidence of acute displaced fracture nor dislocation. The osseous structures intact. There appears to be some mild irregularity of the anterior cortex of midshaft left tibia. The possibility of an early osteomyelitis cannot be excluded. JOINT SPACES: Unremarkable. OTHER FINDINGS: No subcutaneous emphysema. There is irregularity of the anterior of the superficial mid and distal soft tissues which could be the related to patient's wound and/or ulceration. Small round and elliptical shaped soft tissue calcifications are again seen within the anterior and medial soft tissues IMPRESSION: Persistent mild irregularity of the anterior mid-distal soft tissues possibly related to patient's wound and/or ulceration. Minimal on irregularity of the anterior cortical margin of the tibia. Possibility of a mild early osteomyelitis not excluded. . Consider followup MRI
[2017-02-13 15:18] VITALS: BP 120/69; PULSE 64; RESP 16; TEMP 98.2; O2SAT 98
== END 2017-02-13 15:35 | disposition home or self-care (01) ==
LOC: H.ER 12:29
DX: I87.2 Venous insufficiency (chronic) (peripheral) (principal); L03.116 Cellulitis of left lower limb; E11.22 Type 2 diabetes mellitus with diabetic chronic kidney disease

== ENCOUNTER 2017-08-13 11:46 | Emergency (ER) | payer OTHER, SELFPAY ==
[2017-08-13 12:09] VITALS: BP 117/76; PULSE 62; RESP 18; TEMP 98; O2SAT 98
--- NOTE | 2017-08-13 12:15 | ED PDOC ---
Lower Extremity Pain/Injury Time Seen by Provider: 08/13/17 12:01 Chief Complaint (Nursing): Lower Extremity Problem/Injury Chief Complaint (Provider): Lower Extremity Problem/Injury History Per: Patient History/Exam Limitations: no limitations Onset/Duration Of Symptoms: Days (x 2 weeks) Current Symptoms Are (Timing): Still Present Additional History Per: Prior Records Additional Complaint(s): Pedro Luis is a 56 year old male, with a past medical history of varicose veins, who presents to the emergency department complaining of left lower leg pain with open wound for 2 weeks. Patient reports having pain for 8 months, but worsen 2 weeks ago. Patient reports he crushed sulfa drug and put it on his wound yesterday. Reports tactile fever, but denies taking temperature. Reports similar symptoms back in February 2017 and had to stay in the hospital. Patient denies having diabetes, but as per medical records, states he does have diabetes. Denies trauma or falling down. Patient denies going to clinic. PMD: No Family Provider Past Medical History Reviewed: Historical Data, Nursing Documentation, Vital Signs Vital Signs: Last Vital Signs Temp 98.0 F 08/13/17 12:07 Pulse 62 08/13/17 12:07 Resp 18 08/13/17 12:07 BP 117/76 08/13/17 12:07 Pulse Ox 98 08/13/17 12:07 - Medical History PMH: Diabetes, Chronic Kidney Disease Denies: HIV Other PMH: Varicose Veins - Surgical History Surgical History: No Surg Hx - Family History Family History: States: Unknown Family Hx - Social History Current smoker - smoking cessation education provided: No Alcohol: None Drugs: Denies - Immunization History Hx Tetanus Toxoid Vaccination: No Hx Influenza Vaccination: No Hx Pneumococcal Vaccination: No - Home Medications Home Medications: Ambulatory Orders Medication Instructions Recorded Clindamycin [Cleocin] 300 mg PO Q8 #30 cap 01/12/17 Mupirocin 2% Cream [Bactroban 30 applic EXT TID #1 tube 01/12/17 Cream] Clindamycin [Cleocin] 300 mg PO TID #30 cap 01/13/17 Mupirocin 2% Cream [Bactroban 1 gm TOP BID #1 tube 01/13/17 Cream] Clindamycin [Cleocin] 300 mg PO BID #14 cap 02/01/17 Mupirocin 2% Cream [Bactroban 30 applic TOP BID #1 tube 02/01/17 Cream] - Allergies Allergies/Adverse Reactions: Allergies Allergy/AdvReac Type Severity Reaction Status Date / Time No Known Allergies Allergy Verified 06/02/16 12:01 Review of Systems ROS Statement: Except As Marked, All Systems Reviewed And Found Negative Constitutional: Positive for: Fever (Tactile) Musculoskeletal: Positive for: Leg Pain (Left) Physical Exam - Reviewed Nursing Documentation Reviewed: Yes Vital Signs Reviewed: Yes - Physical Exam Appears: Positive for: Non-toxic Head Exam: Positive for: ATRAUMATIC, NORMAL INSPECTION, NORMOCEPHALIC Eye Exam: Positive for: Normal appearance ENT: Positive for: Normal ENT Inspection Neck: Positive for: Normal Cardiovascular/Chest: Positive for: Regular Rate, Rhythm Respiratory: Positive for: Normal Breath Sounds. Negative for: Respiratory Distress Pulses-Dorsalis Pedis (L): 2+ Gastrointestinal/Abdominal: Positive for: Normal Exam Back: Positive for: Normal Inspection Extremity: Positive for: Normal ROM, Capillary Refill (less than 2 seconds), Other (Left Leg: Purplish-Yellow wound with dry scalping throughout, Leg is warm but non-erythematous) Neurologic/Psych: Positive for: Alert - Laboratory Results Result Diagrams: 08/13/17 12:15 08/13/17 12:15 - ECG O2 Sat by Pulse Oximetry: 98 (RA) Pulse Ox Interpretation: Normal - Progress ED Course And Treament: Pt. evaluated by Julito Triana, podiatry resident, who spoke with Dr. Chu who states pt. does not require antibiotics and can f/u with podiatry clinic. Wound dressing placed by Julito in ED. Medical Decision Making Medical Decision Making: Time: 12:10 Plan: - Venous Blood Gas Shock Panel - CMP - CBC - Blood Culture - Left Tibia Fibula Scribe Attestation: Documented by Arnulfo Mendoza, acting as a scribe for Chris Monk PA-C Provider Scribe Attestation: All medical record entries made by the Scribe were at my direction and personally dictated by me. I have reviewed the chart and agree that the record accurately reflects my personal performance of the history, physical exam, medical decision making, and the department course for this patient. I have also personally directed, reviewed, and agree with the discharge instructions and disposition. Disposition - Clinical Impression Clinical Impression: Venous stasis ulcer - Patient ED Disposition Is Patient to be Admitted: No - Disposition Referrals: Podiatry Clinic [Outside] Disposition: Routine/Home Disposition Time: 13:29 Condition: STABLE Additional Instructions: GO TO PODIATRY CLINIC NEXT WEEK WITHOUT FAIL Instructions: Chronic Wound Care (ED) Forms: [facility] (Togolese) Print Language: RUSSIAN
[2017-08-13 12:33] LABS: EOS # 0.2 K/uL (0.0-0.7); MONO # 0.3 K/uL (0.0-0.8); NEUT # 3.7 K/uL (1.8-7.0); RED CELL DISTRIBUTION WIDTH 13.5 % (11.5-14.5)
[2017-08-13 12:39] LABS: VENOUS BLOOD GAS BASE EXCESS 1.5 mmol/L (0.0-2.0); VENOUS BLOOD GAS PCO2 43 mmHg (40-60); VENOUS BLOOD GAS PO2 34 mm/Hg (30-55)
[2017-08-13 12:41] LABS: ALB/GLOB RATIO 1.4 (1.0-2.1); ALBUMIN 4.3 g/dL (3.5-5.0); ALT/SGPT 38 U/L (21-72); AST/SGOT 24 U/L (17-59); BLOOD UREA NITROGEN 18 mg/dl (9-20); CALCIUM 9.3 mg/dL (8.4-10.2); GFR AFRICAN-AMERICAN > 60; GFR NON-AFRICAN AMERICAN > 60
[2017-08-13 12:43] LABS: BASO % 0.7 % (0.0-2.0); EOS % 3.7 % (0.0-4.0); HEMOGLOBIN 13.2 g/dL (12.0-18.0); LYMPH # 1.7 K/uL (1.0-4.3); LYMPH % 28.9 % (20.0-40.0); MEAN CELL VOLUME 91.6 fl (80.0-94.0); MEAN CORPUSCULAR HEMOGLOBIN 30.4 pg (27.0-31.0); MEAN CORPUSCULAR HGB CONC 33.1 g/dL (33.0-37.0); MEAN PLATELET VOLUME 9.5 fl (7.2-11.7); MONO % 4.9 % (0.0-10.0); NEUT % 61.8 % (50.0-75.0); NRBC % 0.1 % (0.0-0.0); RBC 4.36 Mil/uL (4.40-5.90)
--- NOTE | 2017-08-13 14:00 | CP.PCM.CON ---
History of Present Illness - History of Present Illness History of Present Illness: CC: Painful ulceration left anterior carlisle 56 year old male familiar to our services seen in ED for painful venous stasis ulceration to right leg. Patient was last seen in ED in February for same problem. States that after his visit to the ED he only followed up in the podiatry clinic one time and the wound never healed. States that he first noticed the wound back in February when he originally came to the ED to have it looked at. Patient states that he was given a vial of pills with Sulfa as an ingredient from [facility] that he has been breaking up and sprinkling on the wound, causing it to turn purple in color. Patient states that his pain is only moderate today but increases when he stands up for long periods of time. Patient denies any further pedal complaints at this time. Denies N/V/F/C/CP/SOB/posterior calf pain. Denies any redness, purulent drainage or malodor from the ulcer site. PMH: Denies Meds: Denies All: NKDA PSH: Denies FH: Unremarkable SH: Denies tobacco use, ETOH use or illicit drug use Review of Systems - Review of Systems Review of Systems: ROS as per HPI. All other systems reviewed and found to be negative Past Patient History - Past Medical History & Family History Past Medical History?: Yes - Past Social History Alcohol: None Drugs: Denies - CARDIAC Hx Cardiac Disorders: Yes Hx Peripheral Vascular Disease: Yes (varicose veins) - PULMONARY Hx Respiratory Disorders: No - NEUROLOGICAL Hx Neurological Disorder: No - HEENT Hx HEENT Problems: No - RENAL Hx Chronic Kidney Disease: Yes - ENDOCRINE/METABOLIC Hx Endocrine Disorders: No Hx Diabetes Mellitus Type 2: No (denies) - HEMATOLOGICAL/ONCOLOGICAL Hx Human Immunodeficiency Virus (HIV): No - INTEGUMENTARY Hx Dermatological Problems: Yes Other/Comment: reports left leg ulcer x 6 mos - MUSCULOSKELETAL/RHEUMATOLOGICAL Hx Musculoskeletal Disorders: No Hx Falls: No - GASTROINTESTINAL Hx Gastrointestinal Disorders: No - GENITOURINARY/GYNECOLOGICAL Hx Genitourinary Disorders: No - PSYCHIATRIC Hx Psychophysiologic Disorder: No Hx Substance Use: No - SURGICAL HISTORY Hx Surgeries: Yes Other/Comment: reports having stitches done to left leg after wounding it years ago - ANESTHESIA Hx Anesthesia: No Hx Anesthesia Reactions: No Meds Allergies/Adverse Reactions: Allergies Allergy/AdvReac Type Severity Reaction Status Date / Time No Known Allergies Allergy Verified 06/02/16 12:01 Physical Exam - Constitutional Appears: Well, Non-toxic, No Acute Distress - Extremities Exam Additional comments: LLE focused exam: Vasc: DP/PT pulses palpable 1/4 b/l. Skin temperature warm to warm from proximal to distal. CFT < 3 seconds to all digits b/l. Minimal edema noted to b/ l perimalleolar region. Multiple varicosities noted to b/l LE Neuro: Epicritic and protective sensation grossly intact b/l Derm: Venous stasis ulceration measuring roughly 5 cm x 7 cm seen on anterior left carlisle with overlying eschar. Eschar is purple in color most likely secondary to patient's red at home remedy. No periwound erythema, malodor, purulent drainage noted. No undermining, tracking, tunneling or probe to bone noted. Otherwise, no open lesions, maceration, xerosis, abnormal pigmentation or abnormal growths noted b/l MSK: Minimal POP to ulcer site of left leg - Neurological Exam Neurological exam: Alert, Oriented x3 - Psychiatric Exam Psychiatric exam: Normal Affect, Normal Mood Results - Vital Signs Recent Vital Signs: Last Vital Signs Temp 98.0 F 08/13/17 12:07 Pulse 62 08/13/17 12:07 Resp 18 08/13/17 12:07 BP 117/76 08/13/17 12:07 Pulse Ox 98 08/13/17 13:31 - Labs Result Diagrams: 08/13/17 12:15 08/13/17 12:15 Labs: Laboratory Results - last 24 hr 08/13/17 08/13/17 08/13/17 12:15 12:15 12:29 WBC 6.0 RBC 4.36 L Hgb 13.2 Hct 39.9 MCV 91.6 MCH 30.4 MCHC 33.1 RDW 13.5 Plt Count 203 MPV 9.5 Neut % (Auto) 61.8 Lymph % (Auto) 28.9 [place] % (Auto) 4.9 Eos % (Auto) 3.7 Baso % (Auto) 0.7 Neut # 3.7 Lymph # 1.7 [place] # 0.3 Eos # 0.2 Baso # 0.0 pO2 VBG pH VBG pCO2 VBG HCO3 VBG Total CO2 VBG O2 Sat (Calc) VBG Base Excess VBG Potassium Glucose Lactate FiO2 Sodium 140 Potassium 4.1 Chloride 105 Carbon Dioxide 28 Anion Gap 11 BUN 18 Creatinine 1.2 Est GFR ( Amer) > 60 Est GFR (Non-Af Amer) > 60 POC Glucose (mg/dL) 98 Random Glucose 107 Calcium 9.3 Total Bilirubin 0.6 AST 24 ALT 38 Alkaline Phosphatase 71 Total Protein 7.5 Albumin 4.3 Globulin 3.2 Albumin/Globulin Ratio 1.4 Venous Blood Potassium 08/13/17 12:33 WBC RBC Hgb Hct MCV MCH MCHC RDW Plt Count MPV Neut % (Auto) Lymph % (Auto) [place] % (Auto) Eos % (Auto) Baso % (Auto) Neut # Lymph # [place] # Eos # Baso # pO2 34 VBG pH 7.40 VBG pCO2 43 VBG HCO3 25.2 VBG Total CO2 27.9 VBG O2 Sat (Calc) 69.4 H VBG Base Excess 1.5 VBG Potassium 4.1 Glucose 109 Lactate 1.6 FiO2 21.0 Sodium 137.0 Potassium Chloride 108.0 H Carbon Dioxide Anion Gap BUN Creatinine Est GFR ( Amer) Est GFR (Non-Af Amer) POC Glucose (mg/dL) Random Glucose Calcium Total Bilirubin AST ALT Alkaline Phosphatase Total Protein Albumin Globulin Albumin/Globulin Ratio Venous Blood Potassium 4.1 Assessment & Plan - Assessment and Plan (Free Text) Assessment: 56 year old male seen in ED for clinically uninfected venous stasis ulceration of left leg Plan: Patient seen and evaluated in ED Plan discussed wtih attending Dr. Banks Afebrile, absent leukocytosis, absent clinical signs of infection Patient leg dressed with compressive dressing: Cast padding and VALDO bandage Patient told he may remove dressing for showering but should reapply after showering Patient told to discontinue the medication that he got from [facility] Patient advised to return to ED if any acute symptoms of infection occur including N/V/F/C/CP/SOB/posterior calf pain/erythema/drainage/malodor Patient to f/u in podiatry clinic on 08/21/17 for further evaluation/ possible biopsy of ulcer site - Date & Time Date: 08/13/17 Time: 14:39
--- NOTE | 2017-08-13 15:48 | RAD ---
PROCEDURE: Radiographs of the left tibia and fibula. HISTORY: pain COMPARISON: None available. TECHNIQUE: Frontal and lateral views obtained. FINDINGS: BONES: No fracture JOINT SPACES: Unremarkable. OTHER FINDINGS: Irregularity of anterior pretibial soft tissue, possible wound or ulceration. Correlate clinically. IMPRESSION: No acute fracture.
== END 2017-08-13 14:45 | disposition home or self-care (01) ==
LOC: H.ER 11:46
DX: I87.2 Venous insufficiency (chronic) (peripheral) (principal); I73.9 Peripheral vascular disease, unspecified; N18.9 Chronic kidney disease, unspecified

== ENCOUNTER 2017-11-08 11:12 | Day surgery (SDC) | payer SELFPAY ==
[2017-11-02 10:18] VITALS: BMI 30.5
[2017-11-08] MEDS ORDERED: Lidocaine Hydrochloride 1% 20 ML ONE (12:57)
[2017-11-08] MEDS ORDERED: Bupivacaine 0.5% Inj(30mL) ONE (12:57)
[2017-11-08] MEDS ORDERED: ceFAZolin IV 1 gm in Dextrose 1 GM/50 ML BAG IVPB ONE ×2 (12:58→13:59)
[2017-11-08] MEDS ORDERED: Propofol 10 mg/ml Inj (20 ML) ONE (13:18)
[2017-11-08] MEDS ORDERED: Succinylcholine 200 mg/10 ml Inj IV ONE (13:18)
[2017-11-08] MEDS ORDERED: Midazolam 2 MG/2 ML VIAL ONE (13:18)
--- NOTE | 2017-11-08 13:29 | PCM.SURG1 ---
Surgeon's Initial Post Op Note - Surgeon's Notes Surgeon: Dr. Earnest DPM Senior Technical Support Analyst: Jeanie Nolan DPM PGY1 Type of Anesthesia: IV Sedation, Local (8cc 1:1 mixture 1% lidocaine plain & 0.5 % marcaine plain) Anesthesia Administered By: Dr. Luong Pre-Operative Diagnosis: Left foot painful retained hardware Operative Findings: See operative report. materials: 3-0 vicryl, 4-0 vicryl, 3- 0 nylon Post-Operative Diagnosis: Same Operation Performed: Left foot removal of hardware Specimen/Specimens Removed: 2.0 mm Synthes cortical screw Estimated Blood Loss: EBL {In ML}: 1 Blood Products Given: N/A Drains Used: No Drains Post-Op Condition: Good Date of Surgery/Procedure: 11/08/17 Time of Surgery/Procedure: 13:29
[2017-11-08] MEDS ORDERED: Oxycodone/Acetaminophen 5/325 mg Tab PO PRN ×4 (13:30→14:44)
--- NOTE | 2017-11-08 13:53 | CP.PCM.PN ---
Subjective - Date & Time of Evaluation Date of Evaluation: 11/08/17 Time of Evaluation: 11:30 - Subjective Subjective: Podiatry Bernadette-operative Note 56 year old male with no PMH seen for perioperative evaluation for leg biopsy of left leg nonhealing wound. Patient reports that he has had this ulceration for almost a year. Reports pain to the left leg. Rates the pain 4/10 on VAS scale. Patient reports nothing to eat or drink since 7pm last night. PMH: Denies Meds: Denies All: NKDA PSH: Denies FH: Unremarkable SH: Denies tobacco use, ETOH use or illicit drug use Objective - Vital Signs/Intake and Output Vital Signs (last 24 hours): Temp Pulse Resp BP Pulse Ox 98.3 F 74 16 124/68 98 11/08/17 12:07 11/08/17 12:07 11/08/17 12:07 11/08/17 12:07 11/08/17 12:07 Intake and Output: 11/08/17 11/08/17 06:59 18:59 Intake Total 0 Balance 0 - Constitutional Appears: Well, Non-toxic - Extremities Exam Extremities Exam: absent: Calf Tenderness Additional comments: LLE focused exam: Vasc: DP/PT pulses palpable 1/4 b/l. Skin temperature warm to warm from proximal to distal. CFT < 3 seconds to all digits b/l. Minimal edema noted to b/ l perimalleolar region. Multiple varicosities noted to b/l LE Neuro: Gross and protective sensation grossly intact b/l Derm: Ulceration measuring roughly 5 cm x 7 cm located on anterior left carlisle with overlying eschar. Eschar and scab in periwound. Mild periwound erythema, no malodor, mild purulent drainage noted. No undermining, tracking, tunneling or probe to bone noted. Ortho: Minimal POP to ulcer site of left leg Assessment and Plan - Assessment and Plan (Free Text) Assessment: 56 year old male with no PMH seen for perioperative evaluation for left leg nonhealing wound. Plan: Pt was seen and examined in SDS Pt NPO status was confirmed All pre-op testing and clearance in chart Pt has exhausted all conservative treatment at this time and is opting for surgical intervention Pt was explained procedure and post-operative course All pt's questions were answered to satisfaction No guarantees were made Pt understands all risks, benefits and complications of procedure Pt will follow-up with Dr. Tinoco within 1 week of surgery
--- NOTE | 2017-11-08 13:53 | CP.SDSHP ---
Same Day Surgery H & P - History Proposed Procedure: left leg wound biopsy Pre-Op Diagnosis: left leg nonhealing wound - Allergies Allergies: Allergies No Known Allergies Allergy (Verified 09/15/17 14:11) - Physical Exam Vital Signs: Vital Signs 11/08/17 12:07 Temperature 98.3 F Pulse Rate 74 Respiratory 16 Rate Blood Pressure 124/68 O2 Sat by Pulse 98 Oximetry Mental Status: Alert & Oriented x3 - Impression Impression: Pt was seen and examined in SDS. Pt NPO status was confirmed. All pre-op testing and clearance in chart. Pt has exhausted all conservative treatment at this time and is opting for surgical intervention. Pt was explained procedure and post-operative course. All pt's questions were answered to satisfaction. No guarantees were made. Pt understands all risks, benefits and complications of procedure. Pt will follow-up with Dr. Tinoco within 1 week of surgery - Date & Time Date: 11/08/17 Time: 11:00 Short Stay Discharge - Short Stay Discharge Admitting Diagnosis/Reason for Visit: L97.32 Disposition: HOME/ ROUTINE Referrals: Gina Henderson MD [Primary Care Provider] - Additional Instructions (Diet, Activity): -Patient in good/stable condition for discharge home -Pt to resume medications per medical reconciliation -Resume regular diet Please keep dressing clean, dry, & intact to surgical site -Use plastic bag over bandage for showering -Wear post op shoe at all times when ambulating -Call clinic if you see signs of infection (redness, swelling, malodor) -Please make an appointment to see Dr. Tinoco in office/clinic within 1 week for post-op check Progress Note/Discharge Note with Instructions: - Patient evaluated bedside in recovery s/p surgical procedure. - After surgical procedure patient in NAD - (+) Void, (+) Appetite - Capillary refill time <3s and NVSI intact. - Patient denies complaints at this time - Post operative instructions and plan of care explained to patient at length. - Pt. acknowledges understanding. - Patient stable for DC per podiatric surgery
[2017-11-08] MEDS ORDERED: Lidocaine 1% w Epi 1:100,000 Inj ONE (13:59)
[2017-11-08] MEDS ORDERED: EPINEPHrine 1 mg/ml (1:1000) Inj ONE (14:01)
[2017-11-08] MEDS ORDERED: Bacitracin OINT 15GM TOP ONE (14:20)
[2017-11-08] MEDS ORDERED: Bacitracin Ointment 30 GM TUBE ONE (14:36)
[2017-11-08] MEDS ORDERED: Morphine 4 MG/ML VIAL IVP PRN (14:44)
--- NOTE | 2017-11-08 14:44 | PCM.SURG1 ---
Surgeon's Initial Post Op Note - Surgeon's Notes Surgeon: Dr. Tinoco Cloth Carrier: Jeanie Nolan PGY1 Type of Anesthesia: IV Sedation, Local (8cc 1% lidocaine with epi) Anesthesia Administered By: Dr. Hernandez Pre-Operative Diagnosis: Left leg nonhealing wound Operative Findings: See operative report. materials: 4-0 vicryl, 4-0 prolene Post-Operative Diagnosis: same Operation Performed: Left leg wound biopsy Specimen/Specimens Removed: Left leg wound r/o squamous cell carcinoma Estimated Blood Loss: EBL {In ML}: 1 Blood Products Given: N/A Drains Used: No Drains Post-Op Condition: Good Date of Surgery/Procedure: 11/08/17 Time of Surgery/Procedure: 14:44
[2017-11-09 11:11] VITALS: BP 110/65; PULSE 62; TEMP 97.6; O2SAT 97
[2017-11-09 11:12] VITALS: RESP 18
--- NOTE | 2017-11-09 21:32 | OP ---
PROCEDURE DATE: 11/08/2017 PREOPERATIVE DIAGNOSIS: Left leg nonhealing wound, rule out malignancy. POSTOPERATIVE DIAGNOSIS: Left leg nonhealing wound, rule out malignancy. PROCEDURE: Left leg wound biopsy, rule out malignancy. SURGEON: Tylor Tinoco DPM INTEGRATION ANALYST: Jessica Nolan DPM, PGY1 TYPE OF ANESTHESIA: IV sedation with local, 8 mL of 1% lidocaine with epinephrine. ANESTHESIA ADMINISTERED BY: Dr. Hernandez. INDICATIONS: The patient is a 56-year-old male with the above diagnosis. The patient complains of a painful ulceration to the anterior aspect of his left leg. The patient states he has had this ulceration for approximately 1 year and it remains nonhealing. He was advised to obtain a biopsy of his left leg nonhealing wound to rule out malignancy. The patient now requests surgical intervention. The patient signed the consent after careful explanation of the risks, benefits, complications, and alternatives to procedure and wishes to proceed. No guarantees were given or implied. PREPARATION: The patient was brought into the operating room and placed on the operating room table in a supine position. A time-out was performed for identification of the correct patient and procedure. After the induction of IV sedation approximately 8 mL of 1% lidocaine plain with epinephrine was administered periwound avoiding direct infiltration into the wound site. Epinephrine was used with lidocaine for reduction of blood loss. The left lower extremity was then prepped and draped in a normal sterile manner and the procedure began. DESCRIPTION OF PROCEDURE: Attention was directed to the anterior aspect of the left leg where a full thickness ulceration measuring approximately 5 cm x 7 cm was noted with surrounding crest periwound and darkened red discoloration as well. The ulcer was noted to have approximately 0.5 mL of purulent able to be expressed from the central aspect of the wound. Utilizing a 15 blade, semi elliptical incision was made at approximately 2 o' clock from the wound site with the midpoint at the wound edge and this sample was taken, passed off the operative field to be sent to pathology. Half of the wound was sampled from the wound bed and at the other half of the pathology was what appeared to be normal skin. This sample was taken down to subcutaneous tissue. Once the pathology specimen was obtained, the biopsy site was flushed with copious amounts of sterile saline. Then utilizing a 4-0 Vicryl, the subcutaneous tissue was reapproximated in an interrupted horizontal block technique following this utilizing 4-0 Prolene. The biopsy site was reapproximated using 4-0 Prolene in a simple interrupted suture technique. Bacitracin was then applied to the wound site and then dressed with Adaptic sterile gauze and Coban. POSTOPERATIVE CONDITION: The patient tolerated the procedure and anesthesia well and was sent to the recovery room with vital signs stable and neurovascular status intact to the left lower extremity. The patient is to keep this dressing clean, dry and intact and was advised to weight bear very minimally until his first postop visit in the Podiatry Clinic. The patient was advised to present to the emergency room if he develops any signs and symptoms of infection. Podiatry will follow up with the pathology report. Jessica Nolan DPM Tylor Tinoco DPM
== END 2017-11-08 16:40 | disposition home or self-care (01) ==
LOC: H.OPSURG 11:12
PROVIDERS: ATTEND Podiatrist
DX: L97.828 Non-pressure chronic ulcer of other part of left lower leg with other specified severity (principal); E78.5 Hyperlipidemia, unspecified; J44.9 Chronic obstructive pulmonary disease, unspecified; Z87.891 Personal history of nicotine dependence
CPT/HCPCS: 11100; 82948; 87070; 87075; 87181; 88305; J0330; J0690; J2001; J2250; J2270; J2704; J3010

== ENCOUNTER 2018-02-21 08:56 | Emergency (ER) | payer OTHER ==
[2018-02-21 09:11] VITALS: BMI 29.6
[2018-02-21 09:12] VITALS: RESP 17; TEMP 98
--- NOTE | 2018-02-21 09:33 | ED PDOC ---
Lower Extremity Pain/Injury Time Seen by Provider: 02/21/18 09:20 Chief Complaint (Nursing): Lower Extremity Problem/Injury History Per: Patient Onset/Duration Of Symptoms: Days (7) Current Symptoms Are (Timing): Still Present Severity: Mild Pain Scale Rating Of: 3 Additional Complaint(s): S/p surgery for nonhealing wound Oct 2017 left pretibial area. C/o yellow drainage from wound assoc with pain around wound. Denies fever. No calf pain or swelling. Past Medical History Vital Signs: Last Vital Signs Temp 98 F 02/21/18 09:11 Pulse 61 02/21/18 09:11 Resp 17 02/21/18 09:11 BP 111/69 02/21/18 09:11 Pulse Ox 99 02/21/18 09:11 - Medical History PMH: Diabetes, Chronic Kidney Disease Denies: HIV - Family History Family History: States: Unknown Family Hx - Immunization History Hx Tetanus Toxoid Vaccination: No Hx Influenza Vaccination: No Hx Pneumococcal Vaccination: No - Home Medications Home Medications: Ambulatory Orders Medication Instructions Recorded Cephalexin [Keflex] 500 mg PO TID 11/08/17 oxyCODONE/Acetaminophen [Percocet 1 mg PO Q4 PRN 11/08/17 5/325 mg Tab] Methylprednisolone [Medrol Dose 4 mg PO DAILY #21 tab 02/21/18 Pack (21 tabs)] - Allergies Allergies/Adverse Reactions: Allergies Allergy/AdvReac Type Severity Reaction Status Date / Time No Known Allergies Allergy Verified 09/15/17 14:11 Review of Systems ROS Statement: Except As Marked, All Systems Reviewed And Found Negative Musculoskeletal: Positive for: Other (Ulcer and drainage left pretibial area) Physical Exam - Reviewed Nursing Documentation Reviewed: Yes Vital Signs Reviewed: Yes - Physical Exam Appears: Positive for: Non-toxic, No Acute Distress Head Exam: Positive for: ATRAUMATIC, NORMAL INSPECTION, NORMOCEPHALIC Skin: Positive for: Normal Color, Warm, DRY Eye Exam: Positive for: EOMI, Normal appearance, PERRL ENT: Positive for: Normal ENT Inspection Neck: Positive for: Normal, Painless ROM Cardiovascular/Chest: Positive for: Regular Rate, Rhythm Respiratory: Positive for: CNT, Normal Breath Sounds Pulses-Dorsalis Pedis (L): 1+ Pulses-Dorsalis Pedis (R): 1+ Pulses-Post. Tibialis (L): 1+ Pulses-Post. Tibialis (R): 1+ Gastrointestinal/Abdominal: Positive for: Normal Exam, Soft Back: Positive for: Normal Inspection Extremity: Positive for: Other (Left pretibial area 2 cm ulceration with yellow crusting and scant yellow drainage. No warmth or erythema. No calf pain or swelling.) Neurologic/Psych: Positive for: Alert, Oriented - Laboratory Results Result Diagrams: 02/21/18 10:00 02/21/18 10:00 - ECG O2 Sat by Pulse Oximetry: 99 Disposition - Clinical Impression Clinical Impression: Chronic ulcer of left lower extremity - Patient ED Disposition Is Patient to be Admitted: No Counseled Patient/Family Regarding: Studies Performed, Diagnosis, Need For Followup, Rx Given - Disposition [facility]errals[facility] [Outside] Disposition: Routine/Home Disposition Time: 11:57 Condition: FAIR Prescriptions: Methylprednisolone [Medrol Dose Pack (21 tabs)] 4 mg PO DAILY #21 tab Instructions: Wound Care Forms: [facility] (Thai)
[2018-02-21 10:11] LABS: BASO % 0.5 % (0.0-2.0); EOS # 0.2 K/uL (0.0-0.7); EOS % 4.4 % (0.0-4.0); HEMOGLOBIN 13.9 g/dL (12.0-18.0); LYMPH # 1.7 K/uL (1.0-4.3); LYMPH % 31.7 % (20.0-40.0); MEAN CELL VOLUME 91.6 fl (80.0-94.0); MEAN CORPUSCULAR HGB CONC 33.9 g/dL (33.0-37.0); MEAN PLATELET VOLUME 9.1 fl (7.2-11.7); MONO # 0.3 K/uL (0.0-0.8); MONO % 6.4 % (0.0-10.0); NRBC % 0.1 % (0.0-0.0); RBC 4.47 Mil/uL (4.40-5.90); RED CELL DISTRIBUTION WIDTH 13.7 % (11.5-14.5); WHITE BLOOD COUNT 5.3 K/uL (4.8-10.8)
--- NOTE | 2018-02-21 10:20 | RAD ---
Date of service: 02/21/2018 PROCEDURE: Radiographs of the left tibia and fibula. HISTORY: wound drainage COMPARISON: None available. TECHNIQUE: Frontal and lateral views obtained. FINDINGS: BONES: No fracture or destructive lesion. No periosteal reaction or cortical destruction seen. JOINT SPACES: Unremarkable. OTHER FINDINGS: Soft tissue calcifications/phleboliths. Slight changes - anterior lower leg skin contour. No gas-forming cellulitis noted. Correlate clinically with site of wound drainage. IMPRESSION: No osteomyelitis appreciated. No gas-forming cellulitis. Nonspecific findings soft tissue findings as above
[2018-02-21 10:26] LABS: ALB/GLOB RATIO 1.4 (1.0-2.1); ALBUMIN 4.2 g/dL (3.5-5.0); ALT/SGPT 18 U/L (21-72); AST/SGOT 18 U/L (17-59); BLOOD UREA NITROGEN 17 mg/dl (9-20); CALCIUM 8.9 mg/dL (8.4-10.2); GFR AFRICAN-AMERICAN > 60; GFR NON-AFRICAN AMERICAN > 60
[2018-02-21] MEDS ORDERED: Lidocaine 1% Inj (20ml) IJ ONE (11:10)
[2018-02-21] MEDS ORDERED: Lidocaine 1% Inj (20ml) ONE (11:17)
[2018-02-21 12:31] VITALS: BP 129/90; PULSE 63; O2SAT 98
--- NOTE | 2018-02-21 13:06 | CP.PCM.CON ---
History of Present Illness - History of Present Illness History of Present Illness: Podiatry consult note for attending Dr. Moran 57 y/o male patient with PMHx of Type II DM and CKD was seen and evaluated in the ED for left anterior leg wound. Patient complains of pain to the area, which he states started 1 week ago. Patient also states the wound developed over the last several weeks and started draining 3 days ago. Patient denies any trauma or injury to the area. Patient states he dresses the wound with stockingnette when he is out. Patient reports going to the Podiatry wound care clinic at [facility]. Patient reports the wound had healed and he hadn't been to the wound clinic in several months. Patient denies F/V/N/SOB/chills/posterior calf leg pain. PMHx: CKD, Type II DM ALL: NKDA Review of Systems - Review of Systems All systems: reviewed and no additional remarkable complaints except Review of Systems: As per HPI Past Patient History - Past Medical History & Family History Past Medical History?: Yes - Past Social History Smoking Status: Never Smoked - CARDIAC Hx Cardiac Disorders: Yes - PULMONARY Hx Respiratory Disorders: No - NEUROLOGICAL Hx Neurological Disorder: No - HEENT Hx HEENT Problems: No - RENAL Hx Chronic Kidney Disease: Yes - ENDOCRINE/METABOLIC Hx Endocrine Disorders: No Hx Diabetes Mellitus Type 2: No (denies) - HEMATOLOGICAL/ONCOLOGICAL Hx Human Immunodeficiency Virus (HIV): No - INTEGUMENTARY Hx Dermatological Problems: Yes Other/Comment: reports left leg ulcer x 6 mos - MUSCULOSKELETAL/RHEUMATOLOGICAL Hx Musculoskeletal Disorders: No Hx Falls: No - GASTROINTESTINAL Hx Gastrointestinal Disorders: No - GENITOURINARY/GYNECOLOGICAL Hx Genitourinary Disorders: No - PSYCHIATRIC Hx Emotional Abuse: No Hx Physical Abuse: No Hx Substance Use: No - SURGICAL HISTORY Other/Comment: reports having stitches done to left leg after wounding it years ago - ANESTHESIA Hx Anesthesia: No Meds Home Medications: Home Medication List Medication Instructions Recorded Confirmed Type Methylprednisolone [Medrol Dose 4 mg PO DAILY #21 tab 02/21/18 Rx Pack (21 tabs)] Allergies/Adverse Reactions: Allergies Allergy/AdvReac Type Severity Reaction Status Date / Time No Known Allergies Allergy Verified 09/15/17 14:11 Physical Exam - Constitutional Appears: Well, Non-toxic, No Acute Distress - Head Exam Head Exam: ATRAUMATIC, NORMOCEPHALIC - Extremities Exam Additional comments: Bilateral Lower Extremity VASC: DP and PT 1/4 bilaterally, CFT less than 3 seconds X 10, TG warm to cool, non-pitting edema noted to the left anterior leg, Neuro: protective sensation grossly intact Derm: Left: Ulceration measuring 3.0 cm X 1.3 cm was noted at the anterior leg with 50 % granular and 50% fibrotic base consistent with a venous stasis ulcer, hyperpigmented skin with mosiderin deposition surrounding the wound from the mid aspect of anterior leg extending distally to the dorsum of the foot, minimal serous drainage, no probe to bone, no tunneling, no malodor, no tracking , no clinical signs of infection noted MSK: pain with palpation navneet-wound, no pain with range of motion - Neurological Exam Neurological exam: Alert, Oriented x3 - Psychiatric Exam Psychiatric exam: Normal Affect, Normal Mood Results - Vital Signs Recent Vital Signs: Last Vital Signs Temp 98 F 02/21/18 09:11 Pulse 63 02/21/18 12:18 Resp 17 02/21/18 12:18 BP 129/90 02/21/18 12:18 Pulse Ox 98 02/21/18 12:18 - Labs Result Diagrams: 02/21/18 10:00 02/21/18 10:00 Labs: Laboratory Results - last 24 hr 02/21/18 02/21/18 10:00 10:00 WBC 5.3 RBC 4.47 Hgb 13.9 Hct 40.9 MCV 91.6 MCH 31.0 MCHC 33.9 RDW 13.7 Plt Count 200 MPV 9.1 Neut % (Auto) 57.0 Lymph % (Auto) 31.7 Ransom % (Auto) 6.4 Eos % (Auto) 4.4 H Baso % (Auto) 0.5 Neut # (Auto) 3.0 Lymph # (Auto) 1.7 Ransom # (Auto) 0.3 Eos # (Auto) 0.2 Baso # (Auto) 0.0 Sodium 141 Potassium 4.1 Chloride 106 Carbon Dioxide 27 Anion Gap 12 BUN 17 Creatinine 1.0 Est GFR ( Amer) > 60 Est GFR (Non-Af Amer) > 60 Random Glucose 94 Calcium 8.9 Total Bilirubin 0.7 AST 18 ALT 18 L D Alkaline Phosphatase 75 Total Protein 7.2 Albumin 4.2 Globulin 3.0 Albumin/Globulin Ratio 1.4 Assessment & Plan - Assessment and Plan (Free Text) Assessment: 57 y/o male seen and evaluated for a left leg venous stasis ulcer Plan: Patient seen and evaluated in the ED Patient plan discussed with attending Dr. Moran Chart and Imaging were reviewed Foot X-ray- no fracture, no osteomyelitis, no gas-forming cellulitis Patient explained it would be necessary to perform biopsy of the wound for further treatment Patient demonstrated verbal agreement to have biopsy performed in the ED Written consent was obtained, explained to patient, and witnessed by a nurse in patient's [place] language Time-out was performed for the procedure Lidocaine 1% was ordered for local anesthetic block and a proximal v-block was performed Biopsy was performed with a 3 mm Premier Uni-Punch device, and a #15 blade was used to remove the skin biopsy Biopsy was placed in formalin, and submitted to Pathology with label and documentation Patient biopsy site was flushed, cleaned with betadine and dressed in DSD Patient tolerated procedure well without complications Patient is advised to keep dressing intact and return to Podiatry clinic on Monday02/26/18 for follow-up Patient strongly advised to keep dressing intact Patient told to return to ER if systemic signs of infection present (F/V/N/SOB) Patient to be d/c home with prescription for Solu-Medrol dose pack All patient questions answered to satisfaction Patient will follow-up in Podiatry clinic. Patient provided with information to follow up within the week Thank you for the Podiatry consult - Date & Time Date: 02/21/18 Time: 20:33
== END 2018-02-21 12:18 | disposition home or self-care (01) ==
LOC: H.ER 08:56
DX: L97.929 Non-pressure chronic ulcer of unspecified part of left lower leg with unspecified severity (principal); E11.22 Type 2 diabetes mellitus with diabetic chronic kidney disease; N18.9 Chronic kidney disease, unspecified

== ENCOUNTER 2018-03-07 13:46 | Emergency (ER) | payer OTHER ==
[2018-03-07 13:46] VITALS: BMI 29.6
[2018-03-07 13:52] VITALS: BP 91/61; PULSE 73; RESP 18; TEMP 98.7; O2SAT 99
--- NOTE | 2018-03-07 15:25 | ED PDOC ---
HPI: Wound Care - HPI Time Seen by Provider: 03/07/18 13:53 Chief Complaint (Nursing): Wound Check Chief Complaint (Provider): Wound Check History Per: Patient Exam Limitations: no limitations Onset/Duration Of Symptoms: Days Current Symptoms Are (Timing): Better Additional Complaint(s): 57 y/o male presents to the ED requesting dressing change to left lower extremity. Patient states podiatry cancelled his appointment. PMD: [facility] Past Medical History Reviewed: Historical Data, Nursing Documentation, Vital Signs Vital Signs: Last Vital Signs Temp 98.7 F 03/07/18 13:50 Pulse 73 03/07/18 13:50 Resp 18 03/07/18 13:50 BP 91/61 L 03/07/18 13:50 Pulse Ox 99 03/07/18 13:50 - Medical History PMH: Diabetes, Chronic Kidney Disease Denies: HIV - Surgical History Surgical History: No Surg Hx - Family History Family History: States: Unknown Family Hx - Immunization History Hx Tetanus Toxoid Vaccination: No Hx Influenza Vaccination: No Hx Pneumococcal Vaccination: No - Home Medications Home Medications: Ambulatory Orders Medication Instructions Recorded Cephalexin [Keflex] 500 mg PO TID 11/08/17 oxyCODONE/Acetaminophen [Percocet 1 mg PO Q4 PRN 11/08/17 5/325 mg Tab] Methylprednisolone [Medrol Dose 4 mg PO DAILY #21 tab 02/21/18 Pack (21 tabs)] Sulfamethoxazole/Trimethoprim 1 each PO BID #20 tablet 02/24/18 [Bactrim 400-80 mg Tablet] - Allergies Allergies/Adverse Reactions: Allergies Allergy/AdvReac Type Severity Reaction Status Date / Time No Known Allergies Allergy Verified 09/15/17 14:11 Review of Systems ROS Statement: Except As Marked, All Systems Reviewed And Found Negative Constitutional: Positive for: Other (Dressing change on left lower extremity) Physical Exam - Reviewed Nursing Documentation Reviewed: Yes Vital Signs Reviewed: Yes - Physical Exam Appears: Positive for: Non-toxic, No Acute Distress Head Exam: Positive for: ATRAUMATIC Skin: Negative for: Normal Color (Ulcer without surrounding erythema) Eye Exam: Positive for: Normal appearance Neck: Positive for: Normal Cardiovascular/Chest: Negative for: Bradycardia, Tachycardia Respiratory: Negative for: Accessory Muscle Use, Respiratory Distress Extremity: Positive for: Normal ROM, Other Neurologic/Psych: Positive for: Alert, Oriented. Negative for: Motor/Sensory Deficits - ECG O2 Sat by Pulse Oximetry: 99 (RA) Pulse Ox Interpretation: Normal Medical Decision Making Medical Decision Making: -- Consult call to Podiatry was made due to specific wound care dressing equipment not being available here in the ED. -- Podiatry retrieved new cast and applied to patient's leg. Patient was advised by Podiatry on keeping cast dry and to report to the ED for further evaluation if symptoms worsen. Patient is now stable for discharge. Pt left without discharge papers Scribe Attestation: Documented by Desire Montgomery, acting as a scribe for Sola Lowery PA-C. Provider Scribe Attestation: All medical record entries made by the Scribe were at my direction and personally dictated by me. I have reviewed the chart and agree that the record accurately reflects my personal performance of the history, physical exam, medical decision making, and the department course for this patient. I have also personally directed, reviewed, and agree with the discharge instructions and disposition. Disposition - Clinical Impression Clinical Impression: Chronic ulcer of left lower extremity - Patient ED Disposition Is Patient to be Admitted: No - Disposition Disposition: Routine/Home Disposition Time: 14:50 Condition: GOOD Instructions: Unna Boot Forms: [employer] ([place])
--- NOTE | 2018-03-07 16:13 | CP.PCM.CON ---
History of Present Illness - History of Present Illness History of Present Illness: Podiatry consult note for attending Dr. Velasco 57 y/o male patient with PMHx of Type II DM and CKD was seen and evaluated in the ED for left anterior leg wound and swelling. Patient was set in his bed comfortably and NAD. Patient is AAO X 3. 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 Patient states that he had an ulcer i the front of his left leg which was almost healed about a month ago but then it started to open up again. Patient states that he came to the ED where biopsy of the ulcer was done and it didn't teveal anything. He states that he is now following up in the clinic. Patient states that last time in the clinic the doctors applied ANGEL boat for him. He states that his ulcer is painful. He also complains of pain to the area , which he states started 1 week ago. Patient also states that the swelling went down. patient states that he still have pain at the ulcer site. Patient denies aany other pedal complaint. Patient denies any acute events lately. Patient denies F/V/N/SOB/chills/posterior calf leg pain. PMHx: CKD, Type II DM ALL: NKDA Review of Systems - Review of Systems Review of Systems: As per HPI Past Patient History - Past Medical History & Family History Past Medical History?: Yes - Past Social History Smoking Status: Never Smoked - CARDIAC Hx Cardiac Disorders: Yes - PULMONARY Hx Respiratory Disorders: No - NEUROLOGICAL Hx Neurological Disorder: No - HEENT Hx HEENT Problems: No - RENAL Hx Chronic Kidney Disease: Yes - ENDOCRINE/METABOLIC Hx Endocrine Disorders: No Hx Diabetes Mellitus Type 2: No (denies) - HEMATOLOGICAL/ONCOLOGICAL Hx Human Immunodeficiency Virus (HIV): No - INTEGUMENTARY Hx Dermatological Problems: Yes Other/Comment: reports left leg ulcer x 6 mos - MUSCULOSKELETAL/RHEUMATOLOGICAL Hx Musculoskeletal Disorders: No Hx Falls: No - GASTROINTESTINAL Hx Gastrointestinal Disorders: No - GENITOURINARY/GYNECOLOGICAL Hx Genitourinary Disorders: No - PSYCHIATRIC Hx Emotional Abuse: No Hx Physical Abuse: No Hx Substance Use: No - SURGICAL HISTORY Other/Comment: reports having stitches done to left leg after wounding it years ago - ANESTHESIA Hx Anesthesia: No Meds Allergies/Adverse Reactions: Allergies Allergy/AdvReac Type Severity Reaction Status Date / Time No Known Allergies Allergy Verified 09/15/17 14:11 Physical Exam - Constitutional Appears: Well, Non-toxic, No Acute Distress - Head Exam Head Exam: ATRAUMATIC, NORMOCEPHALIC - Extremities Exam Additional comments: Bilateral Lower Extremity VASC: DP and PT 1/4 bilaterally, CFT less than 3 seconds X 10, TG warm to cool, reduced non-pitting edema noted to the left anterior leg Neuro: protective and gross sensations are intact Derm: Left: Ulceration measuring 2.5 cm X 1.5 cm was noted at the anterior leg with granular and fibrotic 50:50. base consistent with a venous stasis ulcer, hyperpigmented skin with hemosiderin deposition surrounding the wound from the mid aspect of anterior leg extending distally to the dorsum of the foot, minimal serous drainage, no probe to bone, no tunneling, some malodor, no tracking, no clinical signs of infection noted. MSK: pain with palpation navneet-wound, no pain with range of motion - Neurological Exam Neurological exam: Alert, CN II-XII Intact - Psychiatric Exam Psychiatric exam: Normal Affect, Normal Mood Results - Vital Signs Recent Vital Signs: Last Vital Signs Temp 98.7 F 03/07/18 13:50 Pulse 73 03/07/18 13:50 Resp 18 03/07/18 13:50 BP 91/61 L 03/07/18 13:50 Pulse Ox 99 03/07/18 15:30 Assessment & Plan - Assessment and Plan (Free Text) Assessment: 57 y/o male seen and evaluated for a left leg venous stasis ulcer Plan: Patient seen and evaluated in the ED Patient plan discussed with attending Dr. Velasco Chart and vitals were reviewed Patient told to return to ER if systemic signs of infection present (F/V/N/SOB) or if there is any redness, hotness or more right leg swelling. Wound dressed using bacitracin and DSD. New angel boot applied with wibrol and coban All patient questions answered to satisfaction Patient to be D/C home. Patient will follow-up in Podiatry clinic. - Date & Time Date: 03/07/18 (n) Time: 16:23
== END 2018-03-07 15:50 | disposition home or self-care (01) ==
LOC: H.ER 13:46
DX: L97.909 Non-pressure chronic ulcer of unspecified part of unspecified lower leg with unspecified severity (principal); E11.22 Type 2 diabetes mellitus with diabetic chronic kidney disease

== ENCOUNTER 2018-11-28 14:08 | Emergency (ER) | payer SELFPAY ==
[2018-11-28 14:09] VITALS: BMI 29.6
[2018-11-28 14:19] VITALS: O2SAT 99
--- NOTE | 2018-11-28 15:06 | ED PDOC ---
Lower Extremity Pain/Injury Time Seen by Provider: 11/28/18 14:25 Chief Complaint (Nursing): Abnormal Skin Integrity Chief Complaint (Provider): Abnormal Skin Integrity History Per: Patient History/Exam Limitations: no limitations Onset/Duration Of Symptoms: Days Additional Complaint(s): 58 year old male with no significant past medical history who is presenting to the ED for evaluation of left ankle pain ongoing for 3 days. Patient states that he is on his feet at work and wears compression stockings. He reports that to the medial aspect of his ankle he had a blister and noted yellow liquid and blood. Patient admits that he is in a lot of pain and cant bear any weight on the extremity. He admits to a history of infection to that same ankle for which he goes to the podiatry clinic. He adds that he has an appointment there on 12/05 and states that he had a surgery for infection in January/February of last year. Patient reports that he has been taking Tylenol for pain with minimal improvem ent but denies taking any medications today. He also denies any recent injury, numbness, tingling or fevers. PMD: none provided Past Medical History Reviewed: Historical Data, Nursing Documentation, Vital Signs Vital Signs: Last Vital Signs Temp 97.3 F L 11/28/18 14:16 Pulse 68 11/28/18 14:16 Resp 16 11/28/18 14:16 BP 106/61 11/28/18 14:16 Pulse Ox 99 11/28/18 14:16 - Medical History PMH: No Chronic Diseases, Diabetes, Chronic Kidney Disease Denies: HIV - Surgical History Other surgeries: foot/leg surgery - Family History Family History: States: Unknown Family Hx - Social History Current smoker - smoking cessation education provided: No Alcohol: None Drugs: Denies - Immunization History Hx Tetanus Toxoid Vaccination: No Hx Influenza Vaccination: No Hx Pneumococcal Vaccination: No - Home Medications Home Medications: Ambulatory Orders Medication Instructions Recorded Cephalexin [Keflex] 500 mg PO TID 11/08/17 oxyCODONE/Acetaminophen [Percocet 1 mg PO Q4 PRN 11/08/17 5/325 mg Tab] Methylprednisolone [Medrol Dose 4 mg PO DAILY #21 tab 02/21/18 Pack (21 tabs)] Sulfamethoxazole/Trimethoprim 1 each PO BID #20 tablet 02/24/18 [Bactrim 400-80 mg Tablet] Naproxen 500 mg PO BID PRN #20 tab 11/28/18 - Allergies Allergies/Adverse Reactions: Allergies Allergy/AdvReac Type Severity Reaction Status Date / Time No Known Allergies Allergy Verified 11/28/18 14:16 Review of Systems ROS Statement: Except As Marked, All Systems Reviewed And Found Negative Constitutional: Negative for: Fever Musculoskeletal: Positive for: Leg Pain, Foot Pain Neurological: Negative for: Weakness, Numbness Physical Exam - Reviewed Nursing Documentation Reviewed: Yes Vital Signs Reviewed: Yes - Physical Exam Comments: GENERAL APPEARANCE: Patient is awake, alert, oriented x 3, in no acute distress. SKIN: Warm, dry; (-) cyanosis HEAD: (-) scalp swelling, (-) scalp tenderness. EYES: (-) conjunctival pallor, (-) scleral icterus, (-) nystagmus. ENMT: Mucous membranes moist. Airway patent: (-) stridor. NECK: (-) tenderness, (-) stiffness, (-) lymphadenopathy. HEART AND CARDIOVASCULAR: (-) irregularity; (-) murmur, (-) gallop. CHEST AND RESPIRATORY: (-) rales, (-) rhonchi, (-) wheezes; breath sounds equal. ABDOMEN: Soft, (-) distention, (-) tenderness, (-) guarding. EXTREMITIES: Left lower: pulses2+, decreased ROM secondary to pain. (+) diffuse swelling and moderate tenderness to medial aspect. (+) dried blood but no o bvious opening or wound. Mid anterior carlisle: (+) healed scab with surrounding chronic skin changes NEURO AND PSYCH: Mental status as above. 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 Pupils equal and reactive; EOMI; (-) facial asymmetry; tongue and uvula midline. Strength and DTRs symmetric. - Laboratory Results Result Diagrams: 11/28/18 15:19 11/28/18 15:19 - ECG O2 Sat by Pulse Oximetry: 99 (RA) Pulse Ox Interpretation: Normal Medical Decision Making Medical Decision Making: Time: 14:44 Plan: --CMP --CBC --Erythrocyte Sedimentation Rate --Toradol 30 mg IVP --X-Ray Left Ankle spoke to podiatry who will see pt, pending labs and xr results PROCEDURE: Left Ankle Radiographs. Three views. HISTORY: pain, swelling, infection COMPARISON: No prior left ankle radiographs available for direct comparison. FINDINGS: BONES: Small region of sclerosis/lucency noted at the posterior calcaneus, uncertain significance. No acute displaced fracture. JOINTS: No dislocation. SOFT TISSUES: Soft tissue swelling. Vascular calcifications. No evidence of radiopaque foreign body. OTHER FINDINGS: None. IMPRESSION: Soft tissue swelling. Small region of sclerosis/lucency noted at the posterior calcaneus, uncertain significance. Please note that MRI without and with IV contrast most sensitive for detection of acute osteomyelitis. 1715 pt seen by podiatry, xray read reviewed, no need for MRI at this time, applied a dressing and surgical shoe, pt has f/u with clinic on 12/05/2018 Discussed results, diagnosis, treatment, return precautions and f/u with pt who is understanding, in agreement and stable for dc Scribe Attestation: Documented by Alexandra Clarke, acting as a scribe for Adam Landry. Provider Scribe Attestation: All medical record entries made by the Scribe were at my direction and personally dictated by me. I have reviewed the chart and agree that the record accurately reflects my personal performance of the history, physical exam, medical decision making, and the department course for this patient. I have also personally directed, reviewed, and agree with the discharge instructions and disposition. Disposition - Clinical Impression Clinical Impression: Ankle pain, left, Blister of ankle - Patient ED Disposition Is Patient to be Admitted: No Counseled Patient/Family Regarding: Studies Performed, Diagnosis, Need For Followup, Rx Given - Disposition Referrals: Podiatry Clinic [Outside] Disposition: Routine/Home Disposition Time: 17:48 Condition: STABLE Additional Instructions: Mantenga el cisco limpia, seca y cubierta. Cambie el vendaje cuando sea necesario, cuando est sucio. Use zapato ashley para el apoyo. Descansa y eleva. [place] los medicamentos segn lo prescrito. Seguimiento con el mdico lechuga segn lo programado. [place]sl[place] por dejarnos cuidar de ti hoy. La atencin mdica de emergencia que recibi hoy se dirigi a jesus sntomas agudos. Si le recetaron algn medicamento, llnelo y tmelo segn las indicaciones. Los sntomas pueden tardar varios acevedo en resolverse. Regrese al Departamento de Emergencias si jesus sntomas empeoran, no mejoran o si tiene otros problemas. Comunquese con andino mdico dentro de 2 acevedo para daxa nueva evaluacin y marco un seguimiento o llame a dustin de los mdicos / clnicas a los que munoz sido referido y que figuran en el formulario de Informacin de visita al paciente que se incluye en andino paquete de kimberly. Lleve todos los documentos que recibi al momento del kimberly junto con los medicamentos que est tomando para andino visita de seguimiento. Nuestro tratamiento no puede reemplazar la atencin mdica continua por parte de un proveedor de atencin primaria (PCP) fuera del departamento de emergencias. Prescriptions: Naproxen 500 mg PO BID PRN #20 tab PRN Reason: Pain, Moderate (4-7) Instructions: Blisters, Muscle and Bone Pain (DC) Forms: [facility] ([place]riac), [facility] ED School/Work Excuse Print Language: [place] - POA Present On Arrival: None
[2018-11-28 15:42] LABS: BASO % 0.4 % (0.0-2.0); EOS # 0.2 K/uL (0.0-0.7); EOS % 3.1 % (0.0-4.0); HEMOGLOBIN 12.4 g/dL (12.0-18.0); LYMPH # 1.5 K/uL (1.0-4.3); LYMPH % 28.8 % (20.0-40.0); MEAN CELL VOLUME 92.4 fl (80.0-94.0); MEAN CORPUSCULAR HEMOGLOBIN 30.5 pg (27.0-31.0); MEAN CORPUSCULAR HGB CONC 33.1 g/dL (33.0-37.0); MEAN PLATELET VOLUME 9.9 fl (7.2-11.7); MONO # 0.3 K/uL (0.0-0.8); MONO % 6.8 % (0.0-10.0); NEUT # 3.1 K/uL (1.8-7.0); NEUT % 60.9 % (50.0-75.0); NRBC % 0.1 % (0.0-0.0); RBC 4.07 Mil/uL (4.40-5.90); RED CELL DISTRIBUTION WIDTH 13.7 % (11.5-14.5); WHITE BLOOD COUNT 5.1 K/uL (4.8-10.8)
--- NOTE | 2018-11-28 15:42 | RAD ---
PROCEDURE: Left Ankle Radiographs. Three views. HISTORY: pain, swelling, infection COMPARISON: No prior left ankle radiographs available for direct comparison. FINDINGS: BONES: Small region of sclerosis/lucency noted at the posterior calcaneus, uncertain significance. No acute displaced fracture. JOINTS: No dislocation. SOFT TISSUES: Soft tissue swelling. Vascular calcifications. No evidence of radiopaque foreign body. OTHER FINDINGS: None. IMPRESSION: Soft tissue swelling. Small region of sclerosis/lucency noted at the posterior calcaneus, uncertain significance. Please note that MRI without and with IV contrast most sensitive for detection of acute osteomyelitis.
[2018-11-28 15:44] LABS: ALB/GLOB RATIO 1.5 (1.0-2.1); ALT/SGPT 25 U/L (21-72); AST/SGOT 21 U/L (17-59); BLOOD UREA NITROGEN 19 mg/dl (9-20); CALCIUM 8.9 mg/dL (8.4-10.2); GFR NON-AFRICAN AMERICAN > 60
--- NOTE | 2018-11-28 17:00 | CP.PCM.CON ---
History of Present Illness - History of Present Illness History of Present Illness: Podiatry consult note for Dr. Mauricio, 57 y/o male patient with PMHx of Type II DM and CKD was seen and evaluated in the ED for left medial ankle pain. Patient states he has a blister there since Monday and he has been using human blood from [place] to heal that area. Patient was set in his bed comfortably and NAD. Patient is AAO X 3. deportation examiner used for translation. Patient states blister has popped on its own, however its painful to touch. Patient denies aany other pedal complaint. Patient denies any acute events lately. Patient denies F/V/N/SOB/chills/posterior calf leg pain. PMHx: CKD, Type II DM ALL: NKDA Past Patient History - Past Medical History & Family History Past Medical History?: Yes - Past Social History Alcohol: None Drugs: Denies - CARDIAC Hx Cardiac Disorders: No - PULMONARY Hx Respiratory Disorders: No - NEUROLOGICAL Hx Neurological Disorder: No - HEENT Hx HEENT Problems: No - RENAL Hx Chronic Kidney Disease: Yes - ENDOCRINE/METABOLIC Hx Endocrine Disorders: No Hx Diabetes Mellitus Type 2: No (denies) - HEMATOLOGICAL/ONCOLOGICAL Hx Human Immunodeficiency Virus (HIV): No - INTEGUMENTARY Hx Dermatological Problems: Yes Other/Comment: reports left leg ulcer x 6 mos - MUSCULOSKELETAL/RHEUMATOLOGICAL Hx Musculoskeletal Disorders: No Hx Falls: No - GASTROINTESTINAL Hx Gastrointestinal Disorders: No - GENITOURINARY/GYNECOLOGICAL Hx Genitourinary Disorders: No - PSYCHIATRIC Hx Psychophysiologic Disorder: No Hx Emotional Abuse: No Hx Physical Abuse: No Hx Substance Use: No - SURGICAL HISTORY Hx Surgeries: Yes Other/Comment: reports having stitches done to left leg after wounding it years ago - ANESTHESIA Hx Anesthesia: Yes Hx Anesthesia Reactions: No Meds Home Medications: Home Medication List Medication Instructions Recorded Confirmed Type Naproxen 500 mg PO BID PRN #20 tab 11/28/18 Rx Allergies/Adverse Reactions: Allergies Allergy/AdvReac Type Severity Reaction Status Date / Time No Known Allergies Allergy Verified 11/28/18 14:16 Physical Exam - Constitutional Appears: Well, Non-toxic - Head Exam Head Exam: ATRAUMATIC, NORMOCEPHALIC - Eye Exam Eye Exam: Normal appearance - ENT Exam ENT Exam: Mucous Membranes Moist - Respiratory Exam Respiratory Exam: NORMAL BREATHING PATTERN - Cardiovascular Exam Cardiovascular Exam: REGULAR RHYTHM - Extremities Exam Additional comments: Bilateral Lower Extremity VASC: DP and PT 1/4 bilaterally, CFT less than 3 seconds X 10, TG warm to cool, reduced non-pitting edema noted to the left anterior leg Neuro: protective and gross sensations are intact Derm: Left: Scab noted at the anterior leg hyperpigmented skin with hemosiderin deposition surrounding the wound from the mid aspect of anterior leg extending distally to the dorsum of the foot, minimal serous drainage, no probe to bone, no tunneling, some malodor, no tracking, no clinical signs of infection noted. diffuse hyperkeratotic skin noted on the medial aspect of the ankle MSK: pain with palpation medial aspect of the ankle, no pain with range of motion Results - Vital Signs Recent Vital Signs: Last Vital Signs Temp 97.3 F L 11/28/18 14:16 Pulse 68 11/28/18 14:16 Resp 16 11/28/18 14:16 BP 106/61 11/28/18 14:16 Pulse Ox 99 11/28/18 15:30 - Labs Result Diagrams: 11/28/18 15:19 11/28/18 15:19 Labs: Laboratory Results - last 24 hr 11/28/18 11/28/18 15:19 15:19 WBC 5.1 RBC 4.07 L Hgb 12.4 Hct 37.6 MCV 92.4 MCH 30.5 MCHC 33.1 RDW 13.7 Plt Count 194 MPV 9.9 Neut % (Auto) 60.9 Lymph % (Auto) 28.8 [place] % (Auto) 6.8 Eos % (Auto) 3.1 Baso % (Auto) 0.4 Neut # (Auto) 3.1 Lymph # (Auto) 1.5 [place] # (Auto) 0.3 Eos # (Auto) 0.2 Baso # (Auto) 0.0 Sodium 136 Potassium 4.1 Chloride 103 Carbon Dioxide 28 Anion Gap 9 L BUN 19 Creatinine 1.1 Est GFR ( Amer) > 60 Est GFR (Non-Af Amer) > 60 Random Glucose 89 Calcium 8.9 Total Bilirubin 0.6 AST 21 ALT 25 Alkaline Phosphatase 62 Total Protein 6.7 Albumin 4.0 Globulin 2.7 Albumin/Globulin Ratio 1.5 Assessment & Plan - Assessment and Plan (Free Text) Assessment: 57 y/o male seen and evaluated for a left leg medial ankle pain Plan: Patient seen and evaluated in the ED Patient plan discussed with attending Dr. Mauricio Chart and vitals were reviewed Patient told to return to ER if systemic signs of infection present (F/V/N/SOB) or if there is any redness, hotness or more right leg swelling. Site dressed with cushioning dressing Patient will follow-up in Podiatry clinic. Patient advised to refrain from using products from other countries rx ibuprofen, prn pain
[2018-11-28 18:14] VITALS: BP 113/67; PULSE 61; RESP 12; TEMP 98.6
== END 2018-11-28 17:49 | disposition home or self-care (01) ==
LOC: H.ER 14:08
DX: M25.572 Pain in left ankle and joints of left foot (principal); S90.529A Blister (nonthermal), unspecified ankle, initial encounter; E11.9 Type 2 diabetes mellitus without complications
CPT/HCPCS: 73610; 80053; 85025; 85651; 96374; 99285; J1885